=== PATIENT | male | born 1985 | race Caucasian/White ===

== ENCOUNTER 2019-02-09 06:16 | Inpatient (IN) | payer OTHER ==
[~2019-02-09] VITALS: Ht 175.3 cm; Wt 87.5 kg
[2019-02-09 07:01] LABS: HEMATOCRIT 52.4 % (42.0-52.0); HEMOGLOBIN 17.7 g/dl (13.5-17.5); MEAN CORPUSCULAR HEMOGLOBIN 29.9 pg (27.0-33.0); MEAN CORPUSCULAR HGB CONC 33.8 g/dl (32.0-36.5); MEAN CORPUSCULAR VOLUME 88.7 fl (80.0-96.0); PLATELET COUNT, AUTOMATED 290 10^3/uL (150-450); RED BLOOD COUNT 5.91 10^6/uL (4.30-6.10); WHITE BLOOD COUNT 9.7 10^3/uL (4.0-10.0)
[2019-02-09 07:31] LABS: AMPHETAMINES LEVEL URINE NEGATIVE (NEGATIVE); BARBITURATES URINE NEGATIVE (NEGATIVE); BENZODIAZEPINES URINE NEGATIVE (NEGATIVE); CANNABINOIDS URINE NEGATIVE (NEGATIVE); COCAINE METABOLITE URINE NEGATIVE (NEGATIVE); METHADONE URINE NEGATIVE (NEGATIVE); OPIATES URINE POSITIVE (NEGATIVE); PHENCYCLIDINE URINE NEGATIVE (NEGATIVE)
[2019-02-09 07:42] LABS: ALBUMIN 4.8 GM/DL (3.2-5.2); ALT/SGPT 58 U/L (12-78); BILIRUBIN,DIRECT 0.1 MG/DL (0.0-0.2); BILIRUBIN,TOTAL 0.3 MG/DL (0.2-1.0); BLOOD UREA NITROGEN 16 MG/DL (7-18); CALCIUM LEVEL 8.7 MG/DL (8.5-10.1); CARBON DIOXIDE LEVEL 24 MEQ/L (21-32); CHLORIDE LEVEL 107 MEQ/L (98-107); CREATININE FOR GFR 1.38 MG/DL (0.70-1.30); ETHYL ALCOHOL (ETHANOL) 0.176 % (0.000-0.010); GLOMERULAR FILTRATION RATE > 60.0 (>60); GLUCOSE, FASTING 101 MG/DL (70-100); POTASSIUM SERUM 4.9 MEQ/L (3.5-5.1); SALICYLATE LEVEL < 1.7 MG/DL (5.0-30.0); SODIUM LEVEL 140 MEQ/L (136-145); TOTAL PROTEIN 8.1 GM/DL (6.4-8.2)
[2019-02-09 07:43] LABS: ACETAMINOPHEN LEVEL < 2.0 UG/ML (10.0-30.0)
[2019-02-09] MEDS ORDERED: HYDR-3713 PO (08:26)
[2019-02-09] MEDS ORDERED: MAALOX 30 ML SUSP *UDC PO PRN (12:45)
[2019-02-09] MEDS ORDERED: MOM 30ML SUSPENSION UDC PO PRN (12:45)
[2019-02-09] MEDS ORDERED: traZODone 50 MG TAB PO PRN (12:45)
[2019-02-09] MEDS: ACETAMINOPHEN TAB 650MG DOSE (2X325MG) PO PRN (15:14)
[2019-02-09 16:22] VITALS: BP 133/75
[2019-02-09 18:00] VITALS: BP 133/75
[2019-02-10 06:32] VITALS: BP 141/65
[2019-02-10 09:00] VITALS: BP 141/65
[2019-02-10] MEDS: ACETAMINOPHEN TAB 650MG DOSE (2X325MG) PO PRN (09:48)
--- NOTE | 2019-02-10 12:25 | MHHPEPDOC ---
General Date Of Admission: February 09, 2019 Legal Status: 9.39 Chief Complaint "I'm suicidal." History of Present Illness HISTORY OF THE PRESENT ILLNESS: Patient is a 33 -year-old , 14yr AD male, with a history of depression and alcohol use who was brought to ED by MPs after he endorsed SI and wrote a suicide letter to his 5yr old daughter in [place] with her mother after he was arrested for DUI. Pt per ED, guarded and not very forth coming with some information regarding how he's been doing lately. Did endorse loneliness and feeling like the "third wheel often" ( in [place] with his daughter) that causes him to sit and isolate alone at home drinking. Does have a therapist that he mostly will have phone sessions with but pre ED is not very engaged during them, last was in November. He continued to endorse SI in the ED. Psychiatric Review of Systems Depression (2 or more weeks): depressed mood, anhedonia, feelings of worthlesness, difficulty concentrating, suicidal thoughts Amira (4 or more days of): denies Psychosis: denies PTSD: history of trauma, intrusive memories, avoidance of triggers, mood fluctuations Anxiety: situational anxiety, stressor related anxiety Anxiety/ 6 months or more of: restlessness, keyed up, difficulty concentrating, irritability Past Psychiatric History Previous Psychiatric Diagnosis: depression, alcohol use d/o Previous Psychiatric Admissions: 2times as 16 for SI by cutting and then electrocution with 3wk stay for one Suicide Attempts: as above. Psychiatric Follow-up: therapist over phone Psychiatric medications: none Past Medical History Medical Problems denies Head Injury: No Seizures: No Hospitalizations: No Surgeries: No Family Medical/Psychiatric HX Medical Problems noncontributory Psychiatric Disorders: No Addiction: No Suicide Attemps/Completions: No Addiction History alcohol (daily use), other (heavy drugs as a teen, none since) Social History Childhood: [place], parents when he was 4y/o so didn't have much of a relationship with his father. Good childhood. Parents are supportive Abuse/Trauma:3 deployments he refuses to discuss Current Living Situation: apt in [place] Education: high school grad Employment: [employer] 14yrs, 3 deployments (one [place], the worst, 2 [place]), [employer]7 promoting to [employer], Part of [place] Social Support:parents Legal: DUI at 19, DUI night presented ED Marital: , 5y/o living in [place] with her mother, last saw for [place], wishes able to see more often Mental Status Examination General Appearance: well groomed, appears stated age, hospital scubs/clothing Build: average Demeanor: withdrawn Eye Contact: average Activity: anxious Behavior: cooperative, withdrawn Speech: clear, spontaneous, low in volume Mood: depressed, anxious Mood lonely Affect: constricted, flat, congruent, anxious Thought Process: logical/linear, intact Thought Content (Delusions): none reported, denies SI, HI, AVH Thought Content (Other): none reported, appropriate Thought Content (Aggressive): none reported Perception (Hallucinations): none reported Perception (Other): none reported Cognition (Impairment of): none reported Cognition(Intelligence Est.): average Oriented: Awake, Alert, Oriented times three Insight: fair Judgment: Fair Psychosis: Denies Diagnoses Depression unspecified r/o generalized anxiety d/o alcohol use d/o A-FIB/CHADSVASC A-FIB History Current/History of A-Fib/PAF?: No Current Oral Anticoagulant The: No Treatment Treatment ordered: NONE Reason Anticoagulant not given: Not indicated/[id number] Assessment Pt seen and states he was arrested for a DUI Fridiay night and "went off the rails and said I was suicidal and wrote a note to my daughter." Admits he's an "alcoholic" drink 2-4 glasses of whiskey per night. States his marriage isn't a marriage as each see other people, tells people they're and just haven't gone thru the legal process. States he's lonely and just got here in May and hasn't really made any friends and misses his daughter a lot. Drinks b/c he's lonely he states. Admits he has to get rid of all his alcohol at home. States he is motivated to get better. Denies SI/HI, hallucinations, delusions. Denies PTSD symptoms. Feels safe here. Initial Treatment Plan 1. Patient was admitted on a 9.39 status. 2. Complete history was obtained. 3. With patients permission, family will be contacted and database will be expanded. 4. Patients medication regimen will be reviewed and changed accordingly. 5. Patient will be provided with protected environment. 6. Patient will be treated with individual, group, and milieu therapies. 7. Patient will receive supportive psych-education. 8. Discharge planning will commence immediately. 9. Outpatient follow-up treatment will be strongly recommended. 10. The initial treatment plan will focus initially on: * Depression. * Risk for suicide. * Substance abuse. 11. [facility] protocol, zoloft 50mg daily, atarax prn ESTIMATED LENGTH OF STAY: 5-7 DAYS. TIME SPENT COUNSELING AND COORDINATING INITIAL CARE: 30 minutes. Vital Signs Vital Signs Date Time Temp Pulse Resp B/P (MAP) Pulse Ox O2 Delivery O2 Flow Rate FiO2 02/10/19 06:32 98.9 85 14 141/65 (90) 02/09/19 16:22 95 02/09/19 16:13 Room Air Medications Scheduled PRN Hydrocodone/Acetaminophen (Hydrocodone-Acetamin 5-325 mg) 1 Each Tablet, 1 TAB PO Q6H PRN for PAIN, (Reported) Allergies Coded Allergies: azithromycin (Verified Allergy, Intermediate, 02/09/19) JUVE Millan DO February 10, 2019 12:25
[2019-02-10] MEDS ORDERED: SERTRALINE HCL 50 MG TAB PO ONE (12:30)
[2019-02-10] MEDS ORDERED: hydrOXYzine 25 MG TAB PO PRN (12:30)
[2019-02-10] MEDS ORDERED: LORazepam 2 MG TAB PO PRN (13:30)
[2019-02-10] MEDS ORDERED: POLYVINYL ALCOHOL OPHTH SOLN 15 ML(LIQUITEARS) OU PRN (13:30)
[2019-02-10] MEDS: FOLIC ACID 1 MG TAB PO SCH (14:04)
[2019-02-10] MEDS: MULTIVITAMINS/MINERALS THERAP 1 TAB PO SCH (14:04)
[2019-02-10] MEDS: THIAMINE 100 MG TAB PO SCH ×2 (14:04→20:40)
[2019-02-10] MEDS: CHLORHEXIDINE GLUCONATE 0.12 % 15ML UDC (PERIDEX ORAL RINSE) SSP SCH ×2 (15:59→20:40)
[2019-02-10 17:07] VITALS: BP 154/78
[2019-02-10 17:30] VITALS: BP 154/78
[2019-02-11 06:20] VITALS: BP 129/58
[2019-02-11] MEDS: THIAMINE 100 MG TAB PO SCH ×2 (09:24→20:53)
[2019-02-11] MEDS: MULTIVITAMINS/MINERALS THERAP 1 TAB PO SCH (09:24)
[2019-02-11] MEDS: FOLIC ACID 1 MG TAB PO SCH (09:24)
[2019-02-11] MEDS: SERTRALINE HCL 50 MG TAB PO SCH (09:24)
[2019-02-11] MEDS: CHLORHEXIDINE GLUCONATE 0.12 % 15ML UDC (PERIDEX ORAL RINSE) SSP SCH ×3 (09:24→20:53)
--- NOTE | 2019-02-11 12:04 | MHIPNPDOC ---
[facility] Progress Note Progress Note DATE OF SERVICE: 02/11/19 HISTORY: Patient is a 33 -year-old , 14yr AD male, with a history of depression and alcohol use who was brought to ED by MPs after he endorsed SI and wrote a suicide letter to his 5yr old daughter in [place] with her mother after he was arrested for DUI. Pt per ED, guarded and not very forth coming with some information regarding how he's been doing lately. Did endorse loneliness and feeling like the "third wheel often" ( in [place] with his daughter) that causes him to sit and isolate alone at home drinking. Does have a therapist that he mostly will have phone sessions with but pre ED is not very engaged during them, last was in November. He continued to endorse SI in the ED. VITAL SIGNS: See below. NEW TEST RESULTS:See below. CURRENT MEDICATIONS: See below. MENTAL STATUS EXAMINATION: General Appearance: well groomed, appears stated age, hospital scubs/clothing Build: average Demeanor: less withdrawn Eye Contact: average Activity: less anxious Behavior: cooperative, less withdrawn Speech: clear, spontaneous, reg in volume Mood: depressed, less anxious Mood a bit better Affect: less constricted, flat, congruent, less anxious Thought Process: logical/linear, intact Thought Content (Delusions): none reported, denies SI, HI, AVH Thought Content (Other): none reported, appropriate Thought Content (Aggressive): none reported Perception (Hallucinations): none reported Perception (Other): none reported Cognition (Impairment of): none reported Cognition(Intelligence Est.): average Oriented: Awake, Alert, Oriented times three Insight: fair Judgment: Fair Psychosis: Denies DIAGNOSES: Depression unspecified R/O Major depression vs. substance induced depression secondary alcohol r/o generalized anxiety d/o alcohol use d/o ASSESSMENT:Pt seen and states he's feeling a little better. Endorses difficulty maintaining sleep at night and always waking up around 2:30-3am in a startled not knowing why. Discussed starting prazosin at night for startle response as maybe secondary to a dream he has no memory of and increasing trazodone. He is agreeable, risks/benefits discussed. Feels he is tolerating his medications and they're beneficial. Alcohol withdrawal is improving and has not required ativan since admission. This is causing his anxiety to improve. States atarax is beneficial for anxiety during the day. He is attending groups and finding them helpful. Admits he's finding it hard to talk to his peers on the units as he has difficultly relating to him. Recommended to continue to try to. States his father is coming up tomorrow to aid him with disposing of all the alcohol in his home and to support him while he's here and after d/c. He denies SI/HI, hallucinations, delusions. Pt feels safe here. MANAGEMENT PLAN: continue plan. start prazosin 1mg qhs for startle during night, increase trazodone for sleep Medications: ciwa protocol zoloft 50mg daily atarax 50mg q6hr prn anxiety trazodone 100mg qhs prn insomnia prazosin 1mg qhs TIME SPENT: 30 minutes. Vital Signs Vital Signs Date Time Temp Pulse Resp B/P (MAP) Pulse Ox O2 Delivery O2 Flow Rate FiO2 02/11/19 06:20 98.9 78 16 129/58 (81) 02/09/19 16:22 95 02/09/19 16:13 Room Air Current Medications Current Medications Acetaminophen (Tylenol Tab) 650 mg Q6HP PRN PO HEADACHE or DISCOMFORT Last administered on 02/10/19at 09:48; Start 02/09/19 at 12:45 Al Hydrox/Mg Hydrox/Simethicone (Mylanta) 30 ml Q4HP PRN PO HEARTBURN/INDIGESTION; Start 02/09/19 at 12:45 Artificial Tears (Akwa Tears) 2 drop TIDP PRN OU DRY EYES; Start 02/10/19 at 13 :30 Chlorhexidine Gluconate (Peridex Oral Rinse) 15 ml TID SSP Last administered on 02/11/19at 09:24; Start 02/10/19 at 16:00 Folic Acid (Folic Acid) 1 mg DAILY PO Last administered on 02/11/19at 09:24; Start 02/10/19 at 09:00 Home Med (Med Rec Complete!) ASDIRECTED XX ; Start 02/09/19 at 11:30; Stop 02/09/19 at 11:41; Status DC Hydroxyzine HCl (Atarax) 25 mg Q6HP PRN PO ANXIETY; Start 02/10/19 at 12:30 Lorazepam (Ativan) 2 mg ASDIRECTED PRN PO SEE PROTOCOL; Start 02/10/19 at 13:30 Magnesium Hydroxide (Milk Of Magnesia) 30 ml DAILYPRN PRN PO CONSTIPATION; Start 02/09/19 at 12:45 Multivitamins (Theragram-M) 1 tab DAILY PO Last administered on 02/11/19at 09:24; Start 02/10/19 at 09:00 Sertraline HCl (Zoloft) 50 mg DAILY PO Last administered on 02/11/19at 09:24; Start 02/11/19 at 09:00 Thiamine HCl (Thiamine HCl) 100 mg BID PO Last administered on 02/11/19at 09:24; Start 02/10/19 at 09:00; Stop 02/12/19 at 21:01 Trazodone HCl (Desyrel) 50 mg QHSP PRN PO INSOMNIA Last administered on 02/10/19at 20:40; Start 02/09/19 at 12:45 Allergies Coded Allergies: azithromycin (Verified Allergy, Intermediate, 02/09/19) Hives A-FIB/CHADSVASC A-FIB History Current/History of A-Fib/PAF?: No Current Oral Anticoagulant The: No Treatment Treatment ordered: NONE Reason Anticoagulant not given: Not indicated/[id number] JUVE GARRIDO DO February 11, 2019 12:04 pm
[2019-02-11] MEDS ORDERED: traZODone 100 MG TAB PO PRN (12:15)
[2019-02-11 13:19] VITALS: BP 140/81
[2019-02-11 18:00] VITALS: BP 132/80
[2019-02-11] MEDS ORDERED: PRAZOSIN 1 MG CAP PO SCH (21:00)
[2019-02-12 06:38] VITALS: BP 128/78
[2019-02-12 06:45] VITALS: BP 128/78
[2019-02-12] MEDS: MULTIVITAMINS/MINERALS THERAP 1 TAB PO SCH (08:41)
[2019-02-12] MEDS: FOLIC ACID 1 MG TAB PO SCH (08:41)
[2019-02-12] MEDS: THIAMINE 100 MG TAB PO SCH ×2 (08:42→21:19)
[2019-02-12] MEDS: CHLORHEXIDINE GLUCONATE 0.12 % 15ML UDC (PERIDEX ORAL RINSE) SSP SCH ×3 (08:42→21:19)
[2019-02-12] MEDS: SERTRALINE HCL 50 MG TAB PO SCH (08:42)
--- NOTE | 2019-02-12 09:33 | MHIPNPDOC ---
[facility] Progress Note Progress Note DATE OF SERVICE: 02/12/19 HISTORY: Patient is a 33 -year-old , 14yr AD male, with a history of depression and alcohol use who was brought to ED by MPs after he endorsed SI and wrote a suicide letter to his 5yr old daughter in [place] with her mother after he was arrested for DUI. Pt per ED, guarded and not very forth coming with some information regarding how he's been doing lately. Did endorse loneliness and feeling like the "third wheel often" ( in [place] with his daughter) that causes him to sit and isolate alone at home drinking. Does have a therapist that he mostly will have phone sessions with but pre ED is not very engaged during them, last was in November. He continued to endorse SI in the ED. VITAL SIGNS: See below. NEW TEST RESULTS:See below. CURRENT MEDICATIONS: See below. MENTAL STATUS EXAMINATION: General Appearance: well groomed, appears stated age, hospital scrubs/clothing Build: average Demeanor: less withdrawn, cooperative Eye Contact: average Activity: less anxious Behavior: cooperative, less withdrawn Speech: clear, spontaneous, reg in volume Mood: depressed, less anxious Mood "alright" Affect: less constricted, flat, congruent, less anxious Thought Process: logical/linear, intact Thought Content (Delusions): none reported, denies SI, HI, AVH Thought Content (Other): none reported, appropriate Thought Content (Aggressive): none reported Perception (Hallucinations): none reported Perception (Other): none reported Cognition (Impairment of): none reported Cognition(Intelligence Est.): average Oriented: Awake, Alert, Oriented times three Insight: fair Judgment: Fair Psychosis: Denies DIAGNOSES: Depression unspecified R/O Major depression vs. substance induced depression secondary alcohol r/o generalized anxiety d/o alcohol use d/o ASSESSMENT:Pt seen and states he's feeling "alright." Endorses difficulty falling sleep last night due to worrisome thoughts and agitated pt on unit. Did wake up in middle of night again despite start of prazosin and increase in trazodone. Will increase prazosin for sleep maintenance, pt agreeable. States his father is coming today to remove all the alcohol from his home, visit him on the unit today, and stay with him awhile s/p discharge. Feels he is tolerating his medications and they're beneficial. Alcohol withdrawal is improving and has not required ativan since admission. This is causing his anxiety to improve. States atarax is beneficial for anxiety during the day. He is attending groups and finding them helpful. He denies SI/HI, hallucinations, delusions. Pt feels safe here. MANAGEMENT PLAN: continue plan. increase prazosin for sleep Medications: wa protocol zoloft 50mg daily atarax 50mg q6hr prn anxiety trazodone 100mg qhs prn insomnia prazosin 2mg qhs TIME SPENT: 30 minutes. Vital Signs Vital Signs Date Time Temp Pulse Resp B/P (MAP) Pulse Ox O2 Delivery O2 Flow Rate FiO2 02/12/19 06:45 80 128/78 02/12/19 06:38 97.9 14 02/09/19 16:22 95 02/09/19 16:13 Room Air Current Medications Current Medications Acetaminophen (Tylenol Tab) 650 mg Q6HP PRN PO HEADACHE or DISCOMFORT Last administered on 02/10/19at 09:48; Start 02/09/19 at 12:45 Al Hydrox/Mg Hydrox/Simethicone (Mylanta) 30 ml Q4HP PRN PO HEARTBURN/INDIGESTION; Start 02/09/19 at 12:45 Artificial Tears (Akwa Tears) 2 drop TIDP PRN OU DRY EYES; Start 02/10/19 at 13:30 Chlorhexidine Gluconate (Peridex Oral Rinse) 15 ml TID SSP Last administered on 02/12/19at 08:42; Start 02/10/19 at 16:00 Folic Acid (Folic Acid) 1 mg DAILY PO Last administered on 02/12/19at 08:41; Start 02/10/19 at 09:00 Home Med (Med Rec Complete!) ASDIRECTED XX ; Start 02/09/19 at 11:30; Stop 02/09/19 at 11:41; Status DC Hydroxyzine HCl (Atarax) 25 mg Q6HP PRN PO ANXIETY; Start 02/10/19 at 12:30 Lorazepam (Ativan) 2 mg ASDIRECTED PRN PO SEE PROTOCOL; Start 02/10/19 at 13:30 Magnesium Hydroxide (Milk Of Magnesia) 30 ml DAILYPRN PRN PO CONSTIPATION; Start 02/09/19 at 12:45 Multivitamins (Theragram-M) 1 tab DAILY PO Last administered on 02/12/19 08:41; Start 02/10/19 at 09:00 Prazosin HCl (Minipress) 1 mg QHS PO Last administered on 02/11/19at 20:53; Start 02/11/19 at 21:00 Sertraline HCl (Zoloft) 50 mg DAILY PO Last administered on 02/12/19 08:42; Start 02/11/19 at 09:00 Thiamine HCl (Thiamine HCl) 100 mg BID PO Last administered on 02/12/19 08:42; Start 02/10/19 at 09:00; Stop 02/12/19 at 21:01 Trazodone HCl (Desyrel) 50 mg QHSP PRN PO INSOMNIA Last administered on 02/10/19at 20:40; Start 02/09/19 at 12:45; Stop 02/11/19 at 12:06; Status DC Trazodone HCl (Desyrel) 100 mg QHSP PRN PO INSOMNIA; Start 02/11/19 at 12:15 Allergies Coded Allergies: azithromycin (Verified Allergy, Intermediate, 02/09/19) Hives A-FIB/CHADSVASC A-FIB History Current/History of A-Fib/PAF?: No Current Oral Anticoagulant The: No Treatment Treatment ordered: NONE Reason Anticoagulant not given: Not indicated/[id number] JUVE GARRIDO DO February 12, 2019 9:33 am
--- NOTE | 2019-02-12 15:27 | HPEPDOC ---
General Date of Admission February 09, 2019 at 12:32 Attending Physician: NOLA MCCORD MD Chief Complaint The patient is a 33-year-old male admitted with a reason for visit of Unsp ecified Depression. History of Present Illness Patient is a 32-year-old male, past medical history significant for depression, alcohol abuse. He was brought to the emergency room on account of suicidal ideation after arriving a letter to his 5 year old daughter stating his intent. Patient endorsed loneliness and suicide ideation. On admit he was admitted to the inpatient psychiatric unit for further evaluation and management. On assessment today he denies any chest pain, shortness of breath, malaise. Patient states he "had a DUI Monday morning and went off a little bit" with suicide ideation and that is all he can remember. Presenting blood alcohol level was 0.176. Creatinine was 1.38. Hemoglobin was 17.7 Home Medications Scheduled PRN Hydrocodone/Acetaminophen (Hydrocodone-Acetamin 5-325 mg) 1 Each Tablet, 1 TAB PO Q6H PRN for PAIN, (Reported) Allergies Coded Allergies: azithromycin (Verified Allergy, Intermediate, 02/09/19) Hives Past Medical History Medical History Insomnia Depression and anxiety Alcohol abuse Surgical History Left finger amputation, hernia repair, 2017 Family History Denies any medical, family history Social History Denies tobacco, drinks 3-4 glasses of whiskey a day, denies polysubstance abuse A-FIB/CHADSVASC A-FIB History Current/History of A-Fib/PAF?: No Current Oral Anticoagulant The: No Review of Systems Other systems A 10 point pertinent review of systems is completed, negative except as stated in the history of present illness Physical Examination Other physical findings GENERAL: NAD SKIN : Warm, dry intact HEENT: Atraumatic, normocephalic, PERRL, moist mucous membrane CV: Regular rate and rhythm, S1S2, no JVD, no edema, distal pulses + and palpable RESP: CTAB, no accessory muscle use noted ABDOMEN: BS+ non distended non tender MS: no joint deformities NEURO: Alert and oriented x 3, CN2-12 grossly intact PSYCH: no anxiety or agitation, appropriate mood and affect. Vital Signs Vital Signs Date Time Temp Pulse Resp B/P (MAP) Pulse Ox O2 Delivery O2 Flow Rate FiO2 02/12/19 06:45 80 128/78 02/12/19 06:38 97.9 14 02/09/19 16:22 95 02/09/19 16:13 Room Air Assessment/Plan Polycythemia Alcohol abuse Renal insufficiency PLAN Repeat CBC has hemoglobin and hematocrit may have been artificially elevated with dehydration from alcohol use If repeat levels within normal limits then. Patient will not need further follow-up by medical team Other acute Mental health issues, currently managed by primary team Plan / VTE VTE Prophylaxis Ordered?: No VTE Exclusion Mechanical Proph: Low Risk for VTE WENDY CURIELP February 12, 2019 15:27
[2019-02-12 15:38] VITALS: BP 134/86
[2019-02-12 18:00] VITALS: BP 132/86
[2019-02-12] MEDS ORDERED: PRAZOSIN 1 MG CAP PO SCH (21:00)
[2019-02-12 21:03] VITALS: BP 132/86
[2019-02-12 21:19] VITALS: BP 149/79
[2019-02-13 06:56] LABS: HEMATOCRIT 49.3 % (42.0-52.0); HEMOGLOBIN 16.7 g/dl (13.5-17.5); MEAN CORPUSCULAR HGB CONC 33.9 g/dl (32.0-36.5); MEAN CORPUSCULAR VOLUME 88.5 fl (80.0-96.0); PLATELET COUNT, AUTOMATED 240 10^3/uL (150-450); RED BLOOD COUNT 5.57 10^6/uL (4.30-6.10); WHITE BLOOD COUNT 6.2 10^3/uL (4.0-10.0)
[2019-02-13 06:58] VITALS: BP 121/57
[2019-02-13 07:27] LABS: ALBUMIN 3.8 GM/DL (3.2-5.2); ALT/SGPT 37 U/L (12-78); BILIRUBIN,TOTAL 0.8 MG/DL (0.2-1.0); BLOOD UREA NITROGEN 16 MG/DL (7-18); CARBON DIOXIDE LEVEL 34 MEQ/L (21-32); CHLORIDE LEVEL 102 MEQ/L (98-107); CREATININE FOR GFR 1.39 MG/DL (0.70-1.30); GLOMERULAR FILTRATION RATE > 60.0 (>60); GLUCOSE, FASTING 101 MG/DL (70-100); MAGNESIUM LEVEL 2.2 MG/DL (1.8-2.4); POTASSIUM SERUM 4.7 MEQ/L (3.5-5.1); SODIUM LEVEL 139 MEQ/L (136-145); TOTAL PROTEIN 7.2 GM/DL (6.4-8.2)
[2019-02-13] MEDS: SERTRALINE HCL 50 MG TAB PO SCH (08:15)
[2019-02-13] MEDS: FOLIC ACID 1 MG TAB PO SCH (08:15)
[2019-02-13] MEDS: MULTIVITAMINS/MINERALS THERAP 1 TAB PO SCH (08:15)
[2019-02-13] MEDS: CHLORHEXIDINE GLUCONATE 0.12 % 15ML UDC (PERIDEX ORAL RINSE) SSP SCH (08:15)
[2019-02-13] MEDS ORDERED: MINI1CAP PO (08:44)
[2019-02-13] MEDS ORDERED: TRAZ10TA PO (08:44)
[2019-02-13] MEDS ORDERED: SERT-155 PO (08:44)
[2019-02-13] MEDS ORDERED: HYDR-3363 PO (08:44)
--- NOTE | 2019-02-13 08:45 | MHDSPDOC ---
[facility] Discharge Summary Discharge Summary DATE OF ADMISSION: February 09, 2019 at 12:32 pm DATE OF DISCHARGE: February 13, 2019 DISCHARGE DIAGNOSES: Depression unspecified R/O Major depression vs. substance induced depression secondary alcohol r/o generalized anxiety d/o alcohol use d/o REASON FOR ADMISSION: Patient is a 33 -year-old , 14yr AD male, with a history of depression and alcohol use who was brought to ED by MPs after he endorsed SI and wrote a suicide letter to his 5yr old daughter in [place] with her mother after he was arrested for DUI. Pt per ED, guarded and not very forth coming with some information regarding how he's been doing lately. Did endorse loneliness and feeling like the "third wheel often" ( in [place] with his daughter) that causes him to sit and isolate alone at home drinking. Does have a therapist that he mostly will have phone sessions with but pre ED is not very engaged during them, last was in November. He continued to endorse SI in the ED. CONSULTANTS INVOLVED: none TREATMENT AND PROGRESS ON THE UNIT : Pt was admitted to [facility], seen for psychiatric assessment and started on zoloft 50mg daily for mood and prazosin 2mg qhs for nightmares. He was provided vistaril 25mg q6hr prn anxiety and trazodone 100mg qhs prn insomnia. He was placed on a ciwa protocol for alcohol withdrawal but did not require any ativan for withdrawal b/c he experienced none. Pt found his medications beneficial and tolerated them well. He attended groups daily during his stay. His symptoms improved with treatment. On day of discharge he denied depression, anxiety, insomnia, SI/HI, hallucinations, delusions. He was discharged home after Mark meeting with follow-up at [facility]. He felt safe for discharge. DISCHARGE ASSESSMENT: Pt seen and states he's feels "good" and is looking forward to being discharged home with his Mark. Is sleeping better at night with trazodone and prazosin. Denies alcohol withdrawal. Feels he is tolerating his medications and they're beneficial. This is causing his anxiety to improve. States atarax is beneficial for anxiety during the day. He is attending groups and finding them helpful. States his father is in town as removed all the alcohol from his home and will be staying with him for a while after d/c. He denies depression, anxiety, insomnia, SI/HI, hallucinations, delusions. Pt feels safe to be discharged home with his Mark. MENTAL STATUS EXAMINATION ON DISCHARGE: General Appearance: well groomed, appears stated age, own clothing Build: average Demeanor: cooperative Eye Contact: average Activity: average Behavior: cooperative Speech: clear, spontaneous, reg in volume Mood: euthymic, full Mood "good" Affect: euthymic, full, congruent, Thought Content (Delusions): none reported, denies SI, HI, AVH Thought Content (Other): none reported, appropriate Thought Content (Aggressive): none reported Perception (Hallucinations): none reported Perception (Other): none reported Cognition (Impairment of): none reported Cognition(Intelligence Est.): average Oriented: Awake, Alert, Oriented times three Insight: good Judgment: good Psychosis: Denies MEDICATIONS ON DISCHARGE: zoloft 50mg daily atarax 25mg q6hr prn anxiety trazodone 100mg qhs prn insomnia prazosin 2mg qhs PLAN/FOLLOWUP ARRANGEMENTS: d/c home with Mark with follow-up at [facility]. The amount of time spent in the coordination of care for this patient was approximately 30 minutes. Vital Signs/I&Os Vital Signs Date Time Temp Pulse Resp B/P (MAP) Pulse Ox O2 Delivery O2 Flow Rate FiO2 02/13/19 06:58 97.7 71 18 121/57 (78) 02/09/19 16:22 95 02/09/19 16:13 Room Air Laboratory Data Labs 24H Laboratory Tests 2 02/13/19 06:35: Nucleated Red Blood Cells % (auto) 0.0, Anion Gap 3L, Glomerular Filtration Rate > 60.0, Blood Urea Nitrogen 16, Creatinine 1.39H, Sodium Level 139, Potassium Level 4.7, Chloride Level 102, Carbon Dioxide Level 34H, Calcium Level 9.0, Aspartate Amino Transf (AST/SGOT) 25, Alanine Aminotransferase (ALT/SGPT) 37, Alkaline Phosphatase 73, Total Bilirubin 0.8, Total Protein 7.2, Albumin 3.8, Magnesium Level 2.2, Albumin/Globulin Ratio 1.12 CBC/BMP Laboratory Tests 02/13/19 06:35 Red Blood Count 5.57, Mean Corpuscular Volume 88.5, Mean Corpuscular Hemoglobin 30.0, Mean Corpuscular Hemoglobin Concent 33.9, Red Cell Distribution Width 13.2, Calcium Level 9.0, Aspartate Amino Transf (AST/SGOT) 25, Alanine Aminotransferase (ALT/SGPT) 37, Alkaline Phosphatase 73, Total Bilirubin 0.8, Total Protein 7.2, Albumin 3.8 Medications Scheduled PRN Hydrocodone/Acetaminophen (Hydrocodone-Acetamin 5-325 mg) 1 Each Tablet, 1 TAB PO Q6H PRN for PAIN, (Reported) Allergies Coded Allergies: azithromycin (Verified Allergy, Intermediate, 02/09/19) JUVE Millan DO February 13, 2019 8:45 am
[2019-02-13 10:54] LABS: CPK CREATINE PHOSPHOKINASE 689 U/L (39-308)
--- NOTE | 2019-02-13 14:21 | IPNPDOC ---
Subjective Date Seen The patient was seen on 02/13/19. Subjective Chief Complaint/HPI Patient has no acute complaints today. He has been discharged Events since last encounter Normalized lab values. Discussed with him. Elevated CK values. Discussed with him. Patient reports he is very active and runs and lifts weights frequently. We have discussed he should follow up renal function and stay hydrated Objective Physical Examination Other physical findings GENERAL: NAD SKIN : Warm, dry intact HEENT: Atraumatic, normocephalic, PERRL, moist mucous membrane CV: Regular rate and rhythm, S1S2, no JVD, no edema, distal pulses + and palpable RESP: CTAB, no accessory muscle use noted ABDOMEN: BS+ non distended non tender MS: no joint deformities NEURO: Alert and oriented x 3, CN2-12 grossly intact PSYCH: no anxiety or agitation, appropriate mood and affect. A-FIB/CHADSVASC A-FIB History Current/History of A-Fib/PAF?: No Current Oral Anticoagulant The: No Assessment /Plan Assessment Polycythemia Alcohol abuse Elevated, creatinine Elevated CPK PLAN Repeat CBC shows hemoglobin and HCT normalized, this was discussed with him Elevated CPK levels discussed . He is instructed to stay hydrated given his very physical lifestyle Also follow up periodically with renal function He verbalized understanding Plan/VTE VTE Prophylaxis Ordered?: No VTE Exclusion Mechanical Proph: Low Risk for VTE VS, I&O, 24H, Fishbone Vital Signs/I&O Vital Signs Date Time Temp Pulse Resp B/P (MAP) Pulse Ox O2 Delivery O2 Flow Rate FiO2 02/13/19 06:58 97.7 71 18 121/57 (78) 02/09/19 16:22 95 02/09/19 16:13 Room Air Laboratory Data 24H LABS Laboratory Tests 2 02/13/19 06:35: Nucleated Red Blood Cells % (auto) 0.0, Anion Gap 3L, Glomerular Filtration Rate > 60.0, Blood Urea Nitrogen 16, Creatinine 1.39H, Sodium Level 139, Potassium Level 4.7, Chloride Level 102, Carbon Dioxide Level 34H, Calcium Level 9.0, Aspartate Amino Transf (AST/SGOT) 25, Alanine Aminotransferase (ALT/SGPT) 37, Total Creatine Kinase 689H, Alkaline Phosphatase 73, Total Bilirubin 0.8, Total Protein 7.2, Albumin 3.8, Magnesium Level 2.2, Albumin/Globulin Ratio 1.12 CBC/BMP Laboratory Tests 02/13/19 06:35 Red Blood Count 5.57, Mean Corpuscular Volume 88.5, Mean Corpuscular Hemoglobin 30.0, Mean Corpuscular Hemoglobin Concent 33.9, Red Cell Distribution Width 13.2, Calcium Level 9.0, Aspartate Amino Transf (AST/SGOT) 25, Alanine Aminotransferase (ALT/SGPT) 37, Total Creatine Kinase 689 H, Alkaline Phosphatase 73, Total Bilirubin 0.8, Total Protein 7.2, Albumin 3.8 WENDY CURIELP February 13, 2019 14:21
== END 2019-02-13 11:40 | disposition home or self-care (01) | DRG 881 ==
LOC: M ED 06:16 → M ED INP 12:32 → M PSY 16:15
PROVIDERS: ADMIT Psychiatry & Neurology Psychiatry; ATTEND Psychiatry & Neurology Psychiatry
DX: F32.9 Major depressive disorder, single episode, unspecified (principal); R45.851 Suicidal ideations; F41.1 Generalized anxiety disorder; F10.10 Alcohol abuse, uncomplicated; F19.94 Other psychoactive substance use, unspecified with psychoactive substance-induced mood disorder; Z88.8 Allergy status to other drugs, medicaments and biological substances; D75.1 Secondary polycythemia

== ENCOUNTER 2021-07-17 11:26 | Emergency (ER) | payer OTHER ==
[~2021-07-17] VITALS: Ht 175.3 cm; Wt 87.7 kg
[~2021-07-17 11:26] MED LIST: HYDR-3363 PO; HYDR-3713 PO; MINI1CAP PO; SERT50TA29 PO; TRAZ1TAB12 PO
[2021-07-17] MEDS ORDERED: VALA500T5 PO (11:32)
--- OUTSIDE RECORDS SUMMARY | 2021-07-17 11:33 | CCD ---
Author Author [facility] Organization [facility] Address Unknown Phone Unavailable Care Team Providers Care Registered Physical Therapist Name Role Phone Adrian Marquis MD Unavailable Unavailable Adrian Marquis MD Unavailable Unavailable Adrian Marquis MD Unavailable Unavailable Adrian Maqruis MD Unavailable Unavailable Adrian Marquis MD Unavailable Unavailable Adrian Marquis MD Unavailable Unavailable Adrian Marquis MD Unavailable Unavailable Adrian Marquis MD Unavailable Unavailable Adrian Marquis MD Unavailable Unavailable Adrian Marquis MD Unavailable Unavailable Adrian Marquis MD Unavailable Unavailable Adrian Marquis MD Unavailable Unavailable Adrian Marquis MD Unavailable Unavailable Adrian Marquis MD Unavailable Unavailable Adrian Marquis MD Unavailable Unavailable Adrian Marquis MD Unavailable Unavailable Adrian Marquis MD Unavailable Unavailable Adrian Marquis MD Unavailable Unavailable Adrian Marquis MD Unavailable Unavailable Adrian Marquis MD Unavailable Unavailable Adrian Marquis MD Unavailable Unavailable Adrian Marquis MD Unavailable Unavailable Adrian Marquis MD Unavailable Unavailable Adrian Marquis MD Unavailable Unavailable Adrian Marquis MD Unavailable Unavailable Adrian Marquis MD Unavailable Unavailable Adrian Marquis MD Unavailable Unavailable Adrian Marquis MD Unavailable Unavailable Adrian Marquis MD Unavailable Unavailable Adrian Marquis MD Unavailable Unavailable Adrian Marquis MD Unavailable Unavailable Adrian Marquis MD Unavailable Unavailable Adrian Marquis MD Unavailable Unavailable Adrian Marquis MD Unavailable Unavailable Adrian Marquis MD Unavailable Unavailable Adrian Marquis MD Unavailable Unavailable Adrian Marquis MD Unavailable Unavailable BolAdrian montano MD Unavailable Unavailable Adrian Marquis MD Unavailable Unavailable BolAdrian montano MD Unavailable Unavailable Adrian Marquis MD Unavailable Unavailable Adrian Marquis MD Unavailable Unavailable Adrian Marquis MD Unavailable Unavailable Adrian Marquis MD Unavailable Unavailable Adrian Marquis MD Unavailable Unavailable BolAdrian montano MD Unavailable Unavailable BolAdrian montano MD Unavailable Unavailable BolAdrian montano MD Unavailable Unavailable BolAdrian montano MD Unavailable Unavailable Jumalon, M Kelli HVAC ENGINEER Unavailable Unavailable Jumalon, M Kelli HVAC ENGINEER Unavailable Unavailable Jumalon, M Kelli HVAC ENGINEER Unavailable Unavailable Jumalon, M Kelli HVAC ENGINEER Unavailable Unavailable Jumalon, M Kelli HVAC ENGINEER Unavailable Unavailable Jumalon, M Kelli HVAC ENGINEER Unavailable Unavailable Jumalon, M Kelli HVAC ENGINEER Unavailable Unavailable Jumalon, M Kelli HVAC ENGINEER Unavailable Unavailable Jumalon, M Kelli HVAC ENGINEER Unavailable Unavailable Jumalon, M Kelli HVAC ENGINEER Unavailable Unavailable Jumalon, M Kelli HVAC ENGINEER Unavailable Unavailable Jumalon, M Kelli HVAC ENGINEER Unavailable Unavailable Jumalon, M Kelli HVAC ENGINEER Unavailable Unavailable Jumalon, M Kelli HVAC ENGINEER Unavailable Unavailable Jumalon, M Kelli HVAC ENGINEER Unavailable Unavailable Jumalon, M Kelli HVAC ENGINEER Unavailable Unavailable Jumalon, M Kelli HVAC ENGINEER Unavailable Unavailable Jumalon, M Kelli HVAC ENGINEER Unavailable Unavailable Jumalon, M Kelli HVAC ENGINEER Unavailable Unavailable Jumalon, M Kelli HVAC ENGINEER Unavailable Unavailable Jumalon, M Kelli HVAC ENGINEER Unavailable Unavailable Jumalon, M Kelli HVAC ENGINEER Unavailable Unavailable Jumalon, M Kelli HVAC ENGINEER Unavailable Unavailable Jumalon, M Kelli HVAC ENGINEER Unavailable Unavailable Jumalon, M Kelli HVAC ENGINEER Unavailable Unavailable Jumalon, M Kelli HVAC ENGINEER Unavailable Unavailable Jumalon, M Kelli HVAC ENGINEER Unavailable Unavailable Jumalon, M Kelli HVAC ENGINEER Unavailable Unavailable Jumalon, M Kelli HVAC ENGINEER Unavailable Unavailable Jumalon, M Kelli HVAC ENGINEER Unavailable Unavailable Re-disclosure Warning The records that you are about to access may contain information from federally-assisted alcohol or drug abuse programs. If such information is present, then the following federally mandated warning applies: This information has been disclosed to you from records protected by federal confidentiality rules (42 CFR part 2). The federal rules prohibit you from making any further disclosure of this information unless further disclosure is expressly permitted by the written consent of the person to whom it pertains or as otherwise permitted by 42 CFR part 2. A general authorization for the release of medical or other information is NOT sufficient for this purpose. The Federal rules restrict any use of the information to criminally investigate or prosecute any alcohol or drug abuse patient.The records that you are about to access may contain highly sensitive health information, the redisclosure of which is protected by Article 27-F of the [facility] Public Health law. If you continue you may have access to information: Regarding HIV / AIDS; Provided by facilities licensed or operated by the [facility] Office of Mental Health; or Provided by the [facility] Office for People With Developmental Disabilities. If such information is present, then the following [facility] mandated warning applies: This information has been disclosed to you from confidential records which are protected by state law. State law prohibits you from making any further disclosure of this information without the specific written consent of the person to whom it pertains, or as otherwise permitted by law. Any unauthorized further disclosure in violation of state law may result in a fine or care home sentence or both. A general authorization for the release of medical or other information is NOT sufficient authorization for further disc losure. Allergies and Adverse Reactions Type Description Substance Reaction Status Data Source(s ) Allergy to substance Mild to Moderate valacyclovir Rash [facility] ([facility]) Allergy to substance Mild to Moderate valacyclovir Rash SKINNY ([facility]) Allergy to substance Mild to Moderate valacyclovir Rash SKINNY ([facility]) Allergy to substance Mild to Moderate valacyclovir Rash SKINNY ([facility]) Allergy to substance Mild to Moderate valacyclovir Rash SKINNY ([facility]) Allergy to substance Mild to Moderate valacyclovir Rash SKINNY ([facility]) Allergy to substance Mild to Moderate valacyclovir Rash SKINNY ([facility]) Encounters Encounter Providers Location Date Indications Data Source(s ) Kelli Murray, CERTIFIED COURT/MEDICAL INTERPRETER: [id number], [place] [address], Ph. Attender: Kelli Murray [facility] 01/04/2021 12:00:00 AM EDT ATHE NA ([facility]) Kelli Murray, CERTIFIED COURT/MEDICAL INTERPRETER: [address], [place] [address], Ph. Attender: Kelli Murray [facility] 12/01/2020 12:00:00 AM EST ATHE NA ([facility]) Kelli Murray, CERTIFIED COURT/MEDICAL INTERPRETER: [address], [facility] [place] [address], Ph. Attender: Kelli Murray [facility] 12/01/2020 12:00:00 AM EST ATHE NA ([facility]) Kelli Murray, CERTIFIED COURT/MEDICAL INTERPRETER: [address], [place] [address], Ph. Attender: Kelli Murray [facility] 10/20/2020 12:00:00 AM EST ATHE NA ([facility]) Kelli Murray, CERTIFIED COURT/MEDICAL INTERPRETER: [address], [place] [address], Ph. Attender: Kelli Murray [facility] 10/20/2020 12:00:00 AM EST ATHE NA ([facility]) Kelli Murray, CERTIFIED COURT/MEDICAL INTERPRETER: [address], [place] [address], Ph. Attender: Kelli Murray [facility] - [facility] 10/20/2020 12:00:00 AM EST ATHE NA ([facility]) Zachary Marquis MD: [id number], [address], [place] [address], Ph. Attender: Zachary Marquis MD [place] - [facility] 08/24/2020 12:00:00 AM EST SKINNY ([facility]) Zachary Marquis MD: [id number], [address], [place] [address], Ph. Attender: Zachary Marquis MD [place] - [facility] 08/24/2020 12:00:00 AM EST SKINNY ([facility]) Zachary Marquis MD: [address], [place] [address], Ph. Attender: Zachary Marquis MD [place] - [facility] 08/24/2020 12:00:00 AM EST SKINNY ([facility]) Zachary Marquis MD: [address], [address], [place] [address], Ph. Attender: Zachary MARTÍNEZ - [facility] 08/24/2020 12:00:00 AM EST SKINNY ([facility]) Zachary Marquis MD: [address], [address], [place] [address], Ph. Attender: Zachary Marquis MD [place] - [facility] 08/10/2020 12:00:00 AM EST SKINNY ([facility]) Zachary Marquis MD: [id number], [address], [place] [address], Ph. Attender: Zachary Marquis MD [place] - [facility] 08/10/2020 12:00:00 AM EST SKINNY ([facility]) Zachary Marquis MD: [id number], [place] [address], Ph. Attender: Zachary MARTÍNEZ - [facility] 08/10/2020 12:00:00 AM EST SKINNY ([facility]) Zachary Marquis MD: [id number], [address], [place] [address], Ph. Attender: Zachary MARTÍNEZ - [facility] 08/10/2020 12:00:00 AM EST SKINNY ([facility]) Zachary Marquis MD: [id number], [place] [address], Ph. Attender: Zachary MARTÍNEZ - [facility] 08/10/2020 12:00:00 AM EST SKINNY ([facility]) Zachary Marquis MD: [address], [place] [address], Ph. Attender: Zachary MARTÍNEZ - [facility] 07/27/2020 12:00:00 AM EDT SKINNY ([facility]) Zachary Marquis MD: [address], [address], [place] [address], Ph. Attender: Zachary MARTÍNEZ - [facility] 07/27/2020 12:00:00 AM EDT SKINNY ([facility]) Zachary Marquis MD: [address], [address], [place] [address], Ph. Attender: Zachary MARTÍNEZ - [facility] 07/27/2020 12:00:00 AM EDT SKINNY ([facility]) Zachary Marquis MD: [id number], [address], [place] [address], Ph. Attender: Zachary MARTÍNEZ - [facility] 07/27/2020 12:00:00 AM EDT SKINNY ([facility]) Zachary Marquis MD: [address], [address], [place] [address], Ph. Attender: Zachary MARTÍNEZ - [facility] 07/27/2020 12:00:00 AM EDT SKINNY ([facility]) Zachary Marquis MD: [address], [address], [place] [address], Ph. Attender: Zachary MARTÍNEZ - [facility] 07/27/2020 12:00:00 AM EDT SKINNY ([facility]) Zachary Marquis MD: [id number], [address], [place] [address], Ph. Attender: Zachary MARTÍNEZ - [facility] 07/14/2020 12:00:00 AM EDT SKINNY ([facility]) Zachary Marquis MD: [id number], [address], [place] [address], Ph. Attender: Zachary MARTÍNEZ - [facility] 07/14/2020 12:00:00 AM EDT SKINNY ([facility]) Zachary Marquis MD: [address], [address], [place] [address], Ph. Attender: Zachary MARTÍNEZ - [facility] 07/14/2020 12:00:00 AM EDT SKINNY ([facility]) Zachary Marquis MD: [id number], [place], [place] [address], Ph. Attender: Zachary Marquis MD [facility] 07/14/2020 12:00:00 AM EDT SKINNY ([facility]) Zachary Marquis MD: [id number], [address], [place] [address], Ph. Attender: Zachary Marquis MD [facility] 07/14/2020 12:00:00 AM EDT SKINNY ([facility]) Zachary Marquis MD: [address], [place], [place] [phone], Ph. Attender: Zachary Marquis MD [facility] 07/14/2020 12:00:00 AM EDT SKINNY ([facility]) Zachary Marquis MD: [address], [place], [place] [phone], Ph. Attender: Zachary Marquis MD [facility] 07/14/2020 12:00:00 AM EDT SKINNY ([facility]) Immunizations Vaccine Date Status Description Data Source(s) COVID-19 VACCINE Pfizer 12/17/2020 12:00:00 AM EDT completed [facility] Vaccine Series Complete: NOThis Data was Submitted to [facility] Via [employer]. Medications Medication Brand Name Start Date Product Form Dose Route Admi nistrative Instructions Pharmacy Instructions Status Indications Reaction Description Data Source(s) 8 HR Acetaminophen 650 MG Extended Release Oral Tablet [Tyle nol] Tylenol 8 Hour 06/30/2020 12:00:00 AM EDT active MEDENT ([facility]) 12 HR Guaifenesin 600 MG / Pseudoephedri ne Hydrochloride 60 MG Extended Release Oral Tablet Mucinex D 60 mg-600 mg tablet,extended release Mucinex D 60 mg-600 mg tablet,extended release completed 12 HR guaifenesin 600 MG / pseudoephedrine hydrochloride 60 MG Extended Release Oral Tablet SKINNY ([facility]) Lidocaine 0.05 MG/MG Topical Ointment lidocaine 5 % to pical ointment lidocaine 5 % topical ointment completed lidocaine 0.05 MG/MG Topical Ointment SKINNY ([facility]) Oseltamivir 75 MG Oral Capsule [Tamiflu] Tamiflu 75 mg capsule Tamiflu 75 mg capsule completed oseltamivir 75 MG Oral Capsule [Tamiflu] SKINNY ([facility]) Capsaicin 0.25 MG/ML Topical Cream capsaicin 0.025 % t opical cream capsaicin 0.025 % topical cream completed capsaicin 0.25 MG/ML Topical Cream SURPRISE ([facility]) 12 HR Guaifenesin 600 MG / Pseudoephedri ne Hydrochloride 60 MG Extended Release Oral Tablet Mucinex D 60 mg-600 mg tablet,extended release Mucinex D 60 mg-600 mg tablet,extended release completed 12 HR guaifenesin 600 MG / pseudoephedrine hydrochloride 60 MG Extended Release Oral Tablet SKINNY ([facility]) Oseltamivir 75 MG Oral Capsule [Tamiflu] Tamiflu 75 mg capsule Tamiflu 75 mg capsule completed oseltamivir 75 MG Oral Capsule [Tamiflu] SKINNY ([facility]) Carboxymethylcellulose Sodium 5 MG/ML Op hthalmic Solution Refresh Plus 0.5 % eye drops in a dropperette Refresh Plus 0.5 % eye drops in a dropperette completed carboxymethylcellulose sodiu m 5 MG/ML Ophthalmic Solution SKINNY ([facility]) valacyclovir 1000 MG Oral Tablet valacyclovir 1 gram t ablet valacyclovir 1 gram tablet completed valacyclovir 10 00 MG Oral Tablet SKINNY ([facility]) Dexamethasone 1 MG/ML / Tobramycin 3 MG/ ML Ophthalmic Suspension tobramycin 0.3 %-dexamethasone 0.1 % eye drops,suspension tobramycin 0.3 %-dexamethasone 0.1 % eye drops,suspension completed dexamethasone 1 MG/ML / tobramycin 3 MG/ML Ophthalmic Suspension SKINNY ([facility]) Carboxymethylcellulose Sodium 5 MG/ML Op hthalmic Solution Refresh Plus 0.5 % eye drops in a dropperette Refresh Plus 0.5 % eye drops in a dropperette completed carboxymethylcellulose sodiu m 5 MG/ML Ophthalmic Solution SKINNY ([facility]) Lidocaine 0.05 MG/MG Topical Ointment lidocaine 5 % to pical ointment lidocaine 5 % topical ointment completed lidocaine 0.05 MG/MG Topical Ointment SKINNY ([facility]) 12 HR Guaifenesin 600 MG / Pseudoephedri ne Hydrochloride 60 MG Extended Release Oral Tablet Mucinex D 60 mg-600 mg tablet,extended release Mucinex D 60 mg-600 mg tablet,extended release completed 12 HR guaifenesin 600 MG / pseudoephedrine hydrochloride 60 MG Extended Release Oral Tablet SKINNY ([facility]) Dexamethasone 1 MG/ML / Tobramycin 3 MG/ ML Ophthalmic Suspension tobramycin 0.3 %-dexamethasone 0.1 % eye drops,suspension tobramycin 0.3 %-dexamethasone 0.1 % eye drops,suspension completed dexamethasone 1 MG/ML / tobramycin 3 MG/ML Ophthalmic Suspension SKINNY ([facility]) valacyclovir 1000 MG Oral Tablet valacyclovir 1 gram t ablet valacyclovir 1 gram tablet completed valacyclovir 10 00 MG Oral Tablet SKINNY ([facility]) Hydroxyzine Hydrochloride 25 MG Oral Tab let Atarax 25 mg tablet Take 1 tablet as needed by oral route. Atarax 25 mg tablet Take 1 tablet as nee ded by oral route. 1 completed hydroxyzine hyd rochloride 25 MG Oral Tablet SKINNY ([facility]) Capsaicin 0.25 MG/ML Topical Cream capsaicin 0.025 % t opical cream capsaicin 0.025 % topical cream completed capsaicin 0.25 MG/ML Topical Cream SURPRISE ([facility]) Diclofenac Sodium 0.01 MG/MG Topical Gel [Voltaren] Voltaren 1 % topical gel as needed Voltaren 1 % topical gel as needed co mpleted diclofenac sodium 0.01 MG/MG Topical Gel [Voltaren] SKINNY ([facility]) Oseltamivir 75 MG Oral Capsule [Tamiflu] Tamiflu 75 mg capsule Tamiflu 75 mg capsule completed oseltamivir 75 MG Oral Capsule [Tamiflu] SKINNY ([facility]) Dexamethasone 1 MG/ML / Tobramycin 3 MG/ ML Ophthalmic Suspension tobramycin 0.3 %-dexamethasone 0.1 % eye drops,suspension tobramycin 0.3 %-dexamethasone 0.1 % eye drops,suspension completed dexamethasone 1 MG/ML / tobramycin 3 MG/ML Ophthalmic Suspension SKINNY ([facility]) Hydroxyzine Hydrochloride 25 MG Oral Tab let Atarax 25 mg tablet Take 1 tablet as needed by oral route. Atarax 25 mg tablet Take 1 tablet as nee ded by oral route. 1 completed hydroxyzine hyd rochloride 25 MG Oral Tablet SKINYN ([facility]) Dexamethasone 1 MG/ML / Tobramycin 3 MG/ ML Ophthalmic Suspension tobramycin 0.3 %-dexamethasone 0.1 % eye drops,suspension tobramycin 0.3 %-dexamethasone 0.1 % eye drops,suspension completed dexamethasone 1 MG/ML / tobramycin 3 MG/ML Ophthalmic Suspension SKINNY ([facility]) buspirone hydrochloride 15 MG Oral Tablet buspirone 15 mg tablet buspirone 15 mg tablet completed buspirone hydr ochloride 15 MG Oral Tablet SKINNY ([facility]) Carboxymethylcellulose Sodium 5 MG/ML Op hthalmic Solution Refresh Plus 0.5 % eye drops in a dropperette Refresh Plus 0.5 % eye drops in a dropperette completed carboxymethylcellulose sodiu m 5 MG/ML Ophthalmic Solution SKINNY ([facility]) Capsaicin 0.25 MG/ML Topical Cream capsaicin 0.025 % t opical cream capsaicin 0.025 % topical cream completed capsaicin 0.25 MG/ML Topical Cream SKINNY ([facility]) Lidocaine 0.05 MG/MG Topical Ointment lidocaine 5 % to pical ointment lidocaine 5 % topical ointment completed lidocaine 0.05 MG/MG Topical Ointment SKINNY ([facility]) valacyclovir 1000 MG Oral Tablet valacyclovir 1 gram t ablet valacyclovir 1 gram tablet completed valacyclovir 10 00 MG Oral Tablet SKINNY ([facility]) Hydroxyzine Hydrochloride 25 MG Oral Tab let Atarax 25 mg tablet Take 1 tablet as needed by oral route. Atarax 25 mg tablet Take 1 tablet as nee ded by oral route. 1 completed hydroxyzine hyd rochloride 25 MG Oral Tablet SKINNY ([facility]) Diclofenac Sodium 0.01 MG/MG Topical Gel [Voltaren] Voltaren 1 % topical gel as needed Voltaren 1 % topical gel as needed co mpleted diclofenac sodium 0.01 MG/MG Topical Gel [Voltaren] SKINNY ([facility]) Diclofenac Sodium 0.01 MG/MG Topical Gel [Voltaren] Voltaren 1 % topical gel as needed Voltaren 1 % topical gel as needed co mpleted diclofenac sodium 0.01 MG/MG Topical Gel [Voltaren] SKINNY ([facility]) Diclofenac Sodium 0.01 MG/MG Topical Gel [Voltaren] Voltaren 1 % topical gel as needed Voltaren 1 % topical gel as needed co mpleted diclofenac sodium 0.01 MG/MG Topical Gel [Voltaren] SKINNY ([facility]) valacyclovir 1000 MG Oral Tablet valacyclovir 1 gram t ablet valacyclovir 1 gram tablet completed valacyclovir 10 00 MG Oral Tablet SKINNY ([facility]) Dexamethasone 1 MG/ML / Tobramycin 3 MG/ ML Ophthalmic Suspension tobramycin 0.3 %-dexamethasone 0.1 % eye drops,suspension tobramycin 0.3 %-dexamethasone 0.1 % eye drops,suspension completed dexamethasone 1 MG/ML / tobramycin 3 MG/ML Ophthalmic Suspension SKINNY ([facility]) 12 HR Guaifenesin 600 MG / Pseudoephedri ne Hydrochloride 60 MG Extended Release Oral Tablet Mucinex D 60 mg-600 mg tablet,extended release Mucinex D 60 mg-600 mg tablet,extended release completed 12 HR guaifenesin 600 MG / pseudoephedrine hydrochloride 60 MG Extended Release Oral Tablet SKINNY ([facility]) Carboxymethylcellulose Sodium 5 MG/ML Op hthalmic Solution Refresh Plus 0.5 % eye drops in a dropperette Refresh Plus 0.5 % eye drops in a dropperette completed carboxymethylcellulose sodiu m 5 MG/ML Ophthalmic Solution SKINNY ([facility]) Oseltamivir 75 MG Oral Capsule [Tamiflu] Tamiflu 75 mg capsule Tamiflu 75 mg capsule completed oseltamivir 75 MG Oral Capsule [Tamiflu] SKINNY ([facility]) Oseltamivir 75 MG Oral Capsule [Tamiflu] Tamiflu 75 mg capsule Tamiflu 75 mg capsule completed oseltamivir 75 MG Oral Capsule [Tamiflu] SKINNY ([facility]) Diclofenac Sodium 0.01 MG/MG Topical Gel [Voltaren] Voltaren 1 % topical gel as needed Voltaren 1 % topical gel as needed co mpleted diclofenac sodium 0.01 MG/MG Topical Gel [Voltaren] SKINNY ([facility]) 12 HR Guaifenesin 600 MG / Pseudoephedri ne Hydrochloride 60 MG Extended Release Oral Tablet Mucinex D 60 mg-600 mg tablet,extended release Mucinex D 60 mg-600 mg tablet,extended release completed 12 HR guaifenesin 600 MG / pseudoephedrine hydrochloride 60 MG Extended Release Oral Tablet KSINNY ([facility]) Dexamethasone 1 MG/ML / Tobramycin 3 MG/ ML Ophthalmic Suspension tobramycin 0.3 %-dexamethasone 0.1 % eye drops,suspension tobramycin 0.3 %-dexamethasone 0.1 % eye drops,suspension completed dexamethasone 1 MG/ML / tobramycin 3 MG/ML Ophthalmic Suspension SKINNY ([facility]) Lidocaine 0.05 MG/MG Topical Ointment lidocaine 5 % to pical ointment lidocaine 5 % topical ointment completed lidocaine 0.05 MG/MG Topical Ointment SKINNY ([facility]) Capsaicin 0.25 MG/ML Topical Cream capsaicin 0.025 % t opical cream capsaicin 0.025 % topical cream completed capsaicin 0.25 MG/ML Topical Cream SKINNY ([facility]) valacyclovir 1000 MG Oral Tablet valacyclovir 1 gram t ablet valacyclovir 1 gram tablet completed valacyclovir 10 00 MG Oral Tablet SKINNY ([facility]) valacyclovir 1000 MG Oral Tablet valacyclovir 1 gram t ablet valacyclovir 1 gram tablet completed valacyclovir 10 00 MG Oral Tablet SKINNY ([facility]) Lidocaine 0.05 MG/MG Topical Ointment lidocaine 5 % to pical ointment lidocaine 5 % topical ointment completed lidocaine 0.05 MG/MG Topical Ointment SKINNY ([facility]) Capsaicin 0.25 MG/ML Topical Cream capsaicin 0.025 % t opical cream capsaicin 0.025 % topical cream completed capsaicin 0.25 MG/ML Topical Cream SKINNY ([facility]) Dexamethasone 1 MG/ML / Tobramycin 3 MG/ ML Ophthalmic Suspension tobramycin 0.3 %-dexamethasone 0.1 % eye drops,suspension tobramycin 0.3 %-dexamethasone 0.1 % eye drops,suspension completed dexamethasone 1 MG/ML / tobramycin 3 MG/ML Ophthalmic Suspension SKINNY ([facility]) Carboxymethylcellulose Sodium 5 MG/ML Op hthalmic Solution Refresh Plus 0.5 % eye drops in a dropperette Refresh Plus 0.5 % eye drops in a dropperette completed carboxymethylcellulose sodiu m 5 MG/ML Ophthalmic Solution SKINNY ([facility]) Lidocaine 0.05 MG/MG Topical Ointment lidocaine 5 % to pical ointment lidocaine 5 % topical ointment completed lidocaine 0.05 MG/MG Topical Ointment SKINNY ([facility]) Diclofenac Sodium 0.01 MG/MG Topical Gel [Voltaren] Voltaren 1 % topical gel as needed Voltaren 1 % topical gel as needed co mpleted diclofenac sodium 0.01 MG/MG Topical Gel [Voltaren] SKINNY ([facility]) Capsaicin 0.25 MG/ML Topical Cream capsaicin 0.025 % t opical cream capsaicin 0.025 % topical cream completed capsaicin 0.25 MG/ML Topical Cream SKINNY ([facility]) 12 HR Guaifenesin 600 MG / Pseudoephedri ne Hydrochloride 60 MG Extended Release Oral Tablet Mucinex D 60 mg-600 mg tablet,extended release Mucinex D 60 mg-600 mg tablet,extended release completed 12 HR guaifenesin 600 MG / pseudoephedrine hydrochloride 60 MG Extended Release Oral Tablet SKINNY ([facility]) Capsaicin 0.25 MG/ML Topical Cream capsaicin 0.025 % t opical cream capsaicin 0.025 % topical cream completed capsaicin 0.25 MG/ML Topical Cream SKINNY ([facility]) Lidocaine 0.05 MG/MG Topical Ointment lidocaine 5 % to pical ointment lidocaine 5 % topical ointment completed lidocaine 0.05 MG/MG Topical Ointment SKINNY ([facility]) 12 HR Guaifenesin 600 MG / Pseudoephedri ne Hydrochloride 60 MG Extended Release Oral Tablet Mucinex D 60 mg-600 mg tablet,extended release Mucinex D 60 mg-600 mg tablet,extended release completed 12 HR guaifenesin 600 MG / pseudoephedrine hydrochloride 60 MG Extended Release Oral Tablet SKINNY ([facility]) Oseltamivir 75 MG Oral Capsule [Tamiflu] Tamiflu 75 mg capsule Tamiflu 75 mg capsule completed oseltamivir 75 MG Oral Capsule [Tamiflu] SKINNY ([facility]) Oseltamivir 75 MG Oral Capsule [Tamiflu] Tamiflu 75 mg capsule Tamiflu 75 mg capsule completed oseltamivir 75 MG Oral Capsule [Tamiflu] SKINNY ([facility]) Diclofenac Sodium 0.01 MG/MG Topical Gel [Voltaren] Voltaren 1 % topical gel as needed Voltaren 1 % topical gel as needed co mpleted diclofenac sodium 0.01 MG/MG Topical Gel [Voltaren] SKINNY ([facility]) Carboxymethylcellulose Sodium 5 MG/ML Op hthalmic Solution Refresh Plus 0.5 % eye drops in a dropperette Refresh Plus 0.5 % eye drops in a dropperette completed carboxymethylcellulose sodiu m 5 MG/ML Ophthalmic Solution SKINNY ([facility]) valacyclovir 1000 MG Oral Tablet valacyclovir 1 gram t ablet valacyclovir 1 gram tablet completed valacyclovir 10 00 MG Oral Tablet SKINNY ([facility]) Carboxymethylcellulose Sodium 5 MG/ML Op hthalmic Solution Refresh Plus 0.5 % eye drops in a dropperette Refresh Plus 0.5 % eye drops in a dropperette completed carboxymethylcellulose sodiu m 5 MG/ML Ophthalmic Solution SKINNY ([facility]) Insurance Providers Payer name Policy type / Coverage type Policy ID Covered libertarian ID Covered libertarian's relationship to hussein Policy Hussein Plan Information [facility] ACTIVE DUTY [id number] SP [id number] [facility] HUMANA - O/P [id number] Problems, Conditions, and Diagnoses Code Display Name Description Problem Type Effective Dates Data Source(s) 2044750 Lumbosacral radiculopathy Lumbosacral radiculopathy Pr oblem 06/30/2020 12:00:00 AM EDT [facility], [facility] [id number] Cervical radiculopathy Cervical radiculopathy Problem 06/30/2020 12:00:00 AM EDT [facility] ([facility], ) [id number] Chronic neck pain Chronic neck pain Problem 06/03 12:00:00 AM EDT [facility] ([facility], ) [id number] Chronic low back pain Chronic low back pain Problem 06/30/2020 12:00:00 AM EDT [facility] ([facility], ) Surgeries/Procedures Procedure Description Date Indications Data Source(s) Needle electromyography, each extremity, with related paraspinal areas, when performed, done with nerve conduction, amplitude and latency/velocity study; complete, five or more muscles studied, innervated by three or more nerves or four or more spinal levels (list separately in addition to the code for primary procedure). 07/02/2020 12:00:00 AM EDT MED[facility] T ([facility], ) Needle electromyography, each extremity, with related paraspinal areas, when performed, done with nerve conduction, amplitude and latency/velocity study; complete, five or more muscles studied, innervated by three or more nerves or four or more spinal levels (list separately in addition to the code for primary procedure). 07/02/2020 12:00:00 AM EDT MED[facility] T ([facility], ) 35852 Nerve conduction studies 13 or more studies NEW 201207/02/2020 12:00:00 AM EDT [facility] ([facility], ) Needle electromyography, each extremity, with related paraspinal areas, when performed, done with nerve conduction, amplitude and latency/velocity study; complete, five or more muscles studied, innervated by three or more nerves or four or more spinal levels (list separately in addition to the code for primary procedure). 07/01/2020 12:00:00 AM EDT MED[facility] T ([facility], ) Needle electromyography, each extremity, with related paraspinal areas, when performed, done with nerve conduction, amplitude and latency/velocity study; complete, five or more muscles studied, innervated by three or more nerves or four or more spinal levels (list separately in addition to the code for primary procedure). 07/01/2020 12:00:00 AM EDT MED[facility] T ([facility], ) Needle Electromyography Non Extremity Done With Nerve Conduc tion 07/01/2020 12:00:00 AM EDT [facility] ([facility], ) 69769 Nerve conduction studies 13 or more studies NEW 201207/01/2020 12:00:00 AM EDT [facility] ([facility]) Needle Electromyography Non Extremity Done With Nerve Conduc tion 07/01/2020 12:00:00 AM EDT [facility] ([facility]) Results ID Date Data Source [id number] 08/19/2020 08:53:00 AM EST [facility] Name Value Range Interpretation Code Description Data Paula rce(s) Supporting Document(s) SARS coronavirus 2 RNA [facility] This lab was ordered by [facility] and reported by [facility]. ID Date Data Source [id number] 08/06/2020 08:40:00 AM EST [facility] Name Value Range Interpretation Code Description Data Paula rce(s) Supporting Document(s) SARS coronavirus 2 RNA [facility] This lab was ordered by [facility] and reported by [facility]. Procedure Social History No Information Vital Signs ID Date Data Source UNK Name Value Range Interpretation Code Description Data Source(s) Diastolic blood pressure 68 mm[Hg] 68 mm[Hg] SKINNY ([facility]) Body height 69 [in_i] 69 [in_i] SKINNY ([facility]) Systolic blood pressure 122 mm[Hg] 122 mm[Hg] A THENA ([facility]) Diastolic blood pressure 68 mm[Hg] 68 mm[Hg] SKINNY ([facility]) Body height 69 [in_i] 69 [in_i] SKINNY ([facility]) Systolic blood pressure 122 mm[Hg] 122 mm[Hg] A THENA ([facility]) Diastolic blood pressure 77 mm[Hg] 77 mm[Hg] SKINNY ([facility]) Body height 69 [in_i] 69 [in_i] SKINNY ([facility]) Systolic blood pressure 142 mm[Hg] 142 mm[Hg] A THENA ([facility]) Diastolic blood pressure 77 mm[Hg] 77 mm[Hg] SKINNY ([facility]) Body height 69 [in_i] 69 [in_i] SKINNY ([facility]) Systolic blood pressure 142 mm[Hg] 142 mm[Hg] A THENA ([facility]) Diastolic blood pressure 77 mm[Hg] 77 mm[Hg] SKINNY ([facility]) Body height 69 [in_i] 69 [in_i] SKINNY ([facility]) Systolic blood pressure 142 mm[Hg] 142 mm[Hg] A THENA ([facility]) Diastolic blood pressure 70 mm[Hg] 70 mm[Hg] SKINNY ([facility]) Body height 69 [in_i] 69 [in_i] SKINNY ([facility]) Body mass index (BMI) [Ratio] 28.1 kg/m2 28.1 k g/m2 SKINNY ([facility]) Systolic blood pressure 120 mm[Hg] 120 mm[Hg] A THENA ([facility]) Body weight 190 [lb_av] 190 [lb_av] SKINNY ([facility]) Diastolic blood pressure 70 mm[Hg] 70 mm[Hg] SKINNY ([facility]) Body height 69 [in_i] 69 [in_i] SKINNY ([facility]) Body mass index (BMI) [Ratio] 28.1 kg/m2 28.1 k g/m2 SKINNY ([facility]) Systolic blood pressure 120 mm[Hg] 120 mm[Hg] A THENA ([facility]) Body weight 190 [lb_av] 190 [lb_av] SKINNY ([facility]) Diastolic blood pressure 70 mm[Hg] 70 mm[Hg] SKINNY ([facility]) Body height 69 [in_i] 69 [in_i] SKINNY ([facility]) Body mass index (BMI) [Ratio] 28.1 kg/m2 28.1 k g/m2 SKINNY ([facility]) Systolic blood pressure 120 mm[Hg] 120 mm[Hg] A THENA ([facility]) Body weight 190 [lb_av] 190 [lb_av] SKINNY ([facility]) Diastolic blood pressure 70 mm[Hg] 70 mm[Hg] SKINNY ([facility]) Body height 69 [in_i] 69 [in_i] SKINNY ([facility]) Body mass index (BMI) [Ratio] 28.1 kg/m2 28.1 k g/m2 SKINNY ([facility]) Systolic blood pressure 120 mm[Hg] 120 mm[Hg] A THENA ([facility]) Body weight 190 [lb_av] 190 [lb_av] SKINNY ([facility]) Diastolic blood pressure 70 mm[Hg] 70 mm[Hg] SKINNY ([facility]) Diastolic blood pressure 70 mm[Hg] 70 mm[Hg] SKINNY ([facility]) Body height 69 [in_i] 69 [in_i] SKINNY ([facility]) Body mass index (BMI) [Ratio] 28.1 kg/m2 28.1 k g/m2 SKINNY ([facility]) Systolic blood pressure 120 mm[Hg] 120 mm[Hg] A THENA ([facility]) Body weight 190 [lb_av] 190 [lb_av] SKINNY ([facility]) Body height 69 [in_i] 69 [in_i] SKINNY ([facility]) Body mass index (BMI) [Ratio] 28.1 kg/m2 28.1 k g/m2 SKINNY ([facility]) Systolic blood pressure 120 mm[Hg] 120 mm[Hg] A THENA ([facility]) Body weight 190 [lb_av] 190 [lb_av] SKINNY ([facility]) Diastolic blood pressure 70 mm[Hg] 70 mm[Hg] SKINNY ([facility]) Body height 69 [in_i] 69 [in_i] SKINNY ([facility]) Body mass index (BMI) [Ratio] 28.1 kg/m2 28.1 k g/m2 SKINNY ([facility]) Systolic blood pressure 120 mm[Hg] 120 mm[Hg] A THENA ([facility]) Body weight 190 [lb_av] 190 [lb_av] SKINNY ([facility]) Systolic blood pressure 120 mm[Hg] 120 mm[Hg] M EDENT ([facility], ) Body height 69 [in_i] 69 [in_i] MEDENT ([facility], ) 5'9" Sophia body weight 160 [lb_av] 160 [lb_av] MEDEN T ([facility], ) Body weight 185.00 [lb_av] 185.00 [lb_av] MEDEN T ([facility], ) Diastolic blood pressure 80 mm[Hg] 80 mm[Hg] MEDENT ([facility]) Body mass index (BMI) [Ratio] 27.3 kg/m2 27.3 k g/m2 [facility] ([facility]) Heart rate 72 /min 72 /min [facility] Patient Treatment Plan of Care Planned Activity Planned Date Details Description Data Source (s) Diclofenac Sodium 0.01 MG/MG Topical Gel [Voltaren] SKINNY ([facility]) valacyclovir 1000 MG Oral Tablet SKINNY ([facility]) Dexamethasone 1 MG/ML / Tobramycin 3 MG/ML Ophthalmic Suspension SKNINY ([facility]) Oseltamivir 75 MG Oral Capsule [Tamiflu] SKINNY ([facility]) Carboxymethylcellulose Sodium 5 MG/ML Ophthalmic Solution SKINNY ([facility]) 12 HR Guaifenesin 600 MG / Pseudoephedri ne Hydrochloride 60 MG Extended Release Oral Tablet [facility]) Lidocaine 0.05 MG/MG Topical Ointment SKINNY ([facility]) Capsaicin 0.25 MG/ML Topical Cream SKINNY ([facility]) Hydroxyzine Hydrochloride 25 MG Oral Tablet SKINNY ([facility]) Diclofenac Sodium 0.01 MG/MG Topical Gel [Voltaren] SKINNY ([facility]) valacyclovir 1000 MG Oral Tablet SKINNY ([facility]) Dexamethasone 1 MG/ML / Tobramycin 3 MG/ML Ophthalmic Suspension SKINNY ([facility]) Oseltamivir 75 MG Oral Capsule [Tamiflu] SKINNY ([facility]) Carboxymethylcellulose Sodium 5 MG/ML Ophthalmic Solution SKINNY ([facility]) 12 HR Guaifenesin 600 MG / Pseudoephedri ne Hydrochloride 60 MG Extended Release Oral Tablet SKINNY ([facility]) Lidocaine 0.05 MG/MG Topical Ointment SKINNY ([facility]) Capsaicin 0.25 MG/ML Topical Cream SKINNY ([facility]) Hydroxyzine Hydrochloride 25 MG Oral Tablet SKINNY ([facility]) Diclofenac Sodium 0.01 MG/MG Topical Gel [Voltaren] SKINNY ([facility]) valacyclovir 1000 MG Oral Tablet SKINNY ([facility]) Dexamethasone 1 MG/ML / Tobramycin 3 MG/ML Ophthalmic Suspension SKINNY ([facility]) Oseltamivir 75 MG Oral Capsule [Tamiflu] SKINNY ([facility]) Carboxymethylcellulose Sodium 5 MG/ML Ophthalmic Solution SKINNY ([facility]) 12 HR Guaifenesin 600 MG / Pseudoephedri ne Hydrochloride 60 MG Extended Release Oral Tablet SK[facility]NY ([facility]) Lidocaine 0.05 MG/MG Topical Ointment SKINNY ([facility]) Capsaicin 0.25 MG/ML Topical Cream SKINNY ([facility]) buspirone hydrochloride 15 MG Oral Tablet SKINNY ([facility]) Hydroxyzine Hydrochloride 25 MG Oral Tablet SKINNY ([facility]) Diclofenac Sodium 0.01 MG/MG Topical Gel [Voltaren] SKINNY ([facility]) valacyclovir 1000 MG Oral Tablet SKINNY ([facility]) Dexamethasone 1 MG/ML / Tobramycin 3 MG/ML Ophthalmic Suspension SKINNY ([facility]) Oseltamivir 75 MG Oral Capsule [Tamiflu] SKINNY ([facility]) Carboxymethylcellulose Sodium 5 MG/ML Ophthalmic Solution SKINNY ([facility]) 12 HR Guaifenesin 600 MG / Pseudoephedri ne Hydrochloride 60 MG Extended Release Oral Tablet [facility] ([facility]) Lidocaine 0.05 MG/MG Topical Ointment SKINNY ([facility]) Capsaicin 0.25 MG/ML Topical Cream SKINNY ([facility]) Diclofenac Sodium 0.01 MG/MG Topical Gel [Voltaren] SKINNY ([facility]) valacyclovir 1000 MG Oral Tablet SKINNY ([facility]) Dexamethasone 1 MG/ML / Tobramycin 3 MG/ML Ophthalmic Suspension SKINNY ([facility]) Oseltamivir 75 MG Oral Capsule [Tamiflu] SKINNY ([facility]) Carboxymethylcellulose Sodium 5 MG/ML Ophthalmic Solution SKINNY ([facility]) 12 HR Guaifenesin 600 MG / Pseudoephedri ne Hydrochloride 60 MG Extended Release Oral Tablet SKINNY ([facility]) Lidocaine 0.05 MG/MG Topical Ointment SKINNY ([facility]) Capsaicin 0.25 MG/ML Topical Cream SKINNY ([facility]) Diclofenac Sodium 0.01 MG/MG Topical Gel [Voltaren] SKINNY ([facility]) valacyclovir 1000 MG Oral Tablet SKINNY ([facility]) Dexamethasone 1 MG/ML / Tobramycin 3 MG/ML Ophthalmic Suspension SKINNY ([facility]) Oseltamivir 75 MG Oral Capsule [Tamiflu] SKINNY ([facility]) Carboxymethylcellulose Sodium 5 MG/ML Ophthalmic Solution SKINNY ([facility]) 12 HR Guaifenesin 600 MG / Pseudoephedri ne Hydrochloride 60 MG Extended Release Oral Tablet SK[facility] ([facility]) Lidocaine 0.05 MG/MG Topical Ointment SKINNY ([facility]) Capsaicin 0.25 MG/ML Topical Cream SKINNY ([facility]) Diclofenac Sodium 0.01 MG/MG Topical Gel [Voltaren] SKINNY ([facility]) valacyclovir 1000 MG Oral Tablet SKINNY ([facility]) Dexamethasone 1 MG/ML / Tobramycin 3 MG/ML Ophthalmic Suspension SKINNY ([facility]) Oseltamivir 75 MG Oral Capsule [Tamiflu] SKINNY ([facility]) Carboxymethylcellulose Sodium 5 MG/ML Ophthalmic Solution SKINNY ([facility]) 12 HR Guaifenesin 600 MG / Pseudoephedri ne Hydrochloride 60 MG Extended Release Oral Tablet SKINNY ([facility]) Lidocaine 0.05 MG/MG Topical Ointment SKINNY ([facility]) Capsaicin 0.25 MG/ML Topical Cream SKINNY ([facility])
--- NOTE | 2021-07-17 11:54 | REP ---
INDICATION: TRAUMA COMPARISON: None. TECHNIQUE: AP, lateral, bilateral oblique views. FINDINGS: Predominately anterolateral swelling is appreciated and lateral view best demonstrates a relatively nondisplaced oblique fracture of the distal fibular metaphysis. There is also a nondisplaced acute avulsion fracture at the tip of the medial malleolus. The ankle mortise appears intact. IMPRESSION: 1. Oblique distal fibular metaphyseal fracture and nondisplaced medial malleolar fracture. <Electronically signed by Donn Goodson > 07/17/21 [id number]
--- OUTSIDE RECORDS SUMMARY | 2021-07-17 12:03 | CCD ---
Author Author [facility] Address Unknown Phone Unavailable Care Team Providers Care Jewelry Manager Name Role Phone Adrian Marquis MD Unavailable [...] montano MD Unavailable Unavailable Jumalon, M Kelli SCANNING SUPERVISOR Unavailable Unavailable Jumalon, M Kelli SCANNING SUPERVISOR Unavailable Unavailable Jumalon, M Kelli SCANNING SUPERVISOR Unavailable Unavailable Jumalon, M Kelli SCANNING SUPERVISOR Unavailable Unavailable Jumalon, M Kelli SCANNING SUPERVISOR Unavailable Unavailable Jumalon, M Kelli SCANNING SUPERVISOR Unavailable Unavailable Jumalon, M Kelli SCANNING SUPERVISOR Unavailable Unavailable Jumalon, M Kelli SCANNING SUPERVISOR Unavailable Unavailable Jumalon, M Kelli SCANNING SUPERVISOR Unavailable Unavailable Jumalon, M Kelli SCANNING SUPERVISOR Unavailable Unavailable Jumalon, M Kelli SCANNING SUPERVISOR Unavailable Unavailable Jumalon, M Kelli SCANNING SUPERVISOR Unavailable Unavailable Jumalon, M Kelli SCANNING SUPERVISOR Unavailable Unavailable Jumalon, M Kelli SCANNING SUPERVISOR Unavailable Unavailable Jumalon, M Kelli SCANNING SUPERVISOR Unavailable Unavailable Jumalon, M Kelli SCANNING SUPERVISOR Unavailable Unavailable Jumalon, M Kelli SCANNING SUPERVISOR Unavailable Unavailable Jumalon, M Kelli SCANNING SUPERVISOR Unavailable Unavailable Jumalon, M Kelli SCANNING SUPERVISOR Unavailable Unavailable Jumalon, M Kelli SCANNING SUPERVISOR Unavailable Unavailable Jumalon, M Kelli SCANNING SUPERVISOR Unavailable Unavailable Jumalon, M Kelli SCANNING SUPERVISOR Unavailable Unavailable Jumalon, M Kelli SCANNING SUPERVISOR Unavailable Unavailable Jumalon, M Kelli SCANNING SUPERVISOR Unavailable Unavailable Jumalon, M Kelli SCANNING SUPERVISOR Unavailable Unavailable Jumalon, M Kelli SCANNING SUPERVISOR Unavailable Unavailable Jumalon, M Kelli SCANNING SUPERVISOR Unavailable Unavailable Jumalon, M Kelli SCANNING SUPERVISOR Unavailable Unavailable Jumalon, M Kelli SCANNING SUPERVISOR Unavailable Unavailable Jumalon, M Kelli SCANNING SUPERVISOR Unavailable Unavailable Re-disclosure Warning The records that [...] is protected by Article 27-F of the [facility] Public Health law. If you continue you may have access to information: Regarding HIV / AIDS; Provided by facilities licensed or operated by the [facility] Office of Mental Health; or Provided by the [facility] Office for People With Developmental Disabilities. If such information is present, then the following [facility] mandated warning applies: This information has been [...] law may result in a fine or shelter sentence or both. A general authorization for the release of medical or other information is NOT sufficient authorization for further disc losure. Allergies and Adverse Reactions Type Description Substance Reaction Status Data Source(s ) Allergy to substance Mild to Moderate valacyclovir Rash [facility] ([facility]) Allergy to substance Mild to Moderate valacyclovir Rash [facility] ([facility]) Allergy to substance Mild to Moderate valacyclovir Rash [place]INNY ([facility]) Allergy to substance Mild to Moderate valacyclovir Rash [place] ([facility]) Allergy to substance Mild to Moderate valacyclovir Rash [place]IN[facility] ([facility]) Allergy to substance Mild to Moderate valacyclovir Rash [facility] ([facility]) Allergy to substance Mild to Moderate valacyclovir Rash [facility]IN[facility] ([facility]) Encounters Encounter Providers Location Date Indications Data Source(s ) Kelli Murray, AREA MANAGER: [id number], [place] [address], Ph. Attender: Kelli Murray [facility] - [facility] 01/04/2021 12:00:00 AM EDT ATHE NA ([facility]) Kelli Murray, AREA MANAGER: [id number], [address], [place] [address], Ph. Attender: Kelli Murray [facility] - [facility] 12/01/2020 12:00:00 AM EST ATHE NA ([facility]) Kelli Murray, AREA MANAGER: [id number], [place] [address], Ph. Attender: Kelli Murray [facility] - [facility] 12/01/2020 12:00:00 AM EST ATHE NA ([facility]) Kelli Murray, AREA MANAGER: [id number], [place] [address], Ph. Attender: Kelli Murray [facility] - [facility] 10/20/2020 12:00:00 AM EST ATHE NA ([facility]) Kelli Murray, AREA MANAGER: [id number], [place] [address], Ph. Attender: Kelli Murray [facility] - [facility] 10/20/2020 12:00:00 AM EST ATHE NA ([facility]) Kelli Murray, AREA MANAGER: [id number], [place] [address], Ph. Attender: Kelli Murray [facility] - [facility] 10/20/2020 12:00:00 AM EST ATHE NA ([facility]) Zachary Marquis MD: [id number], [place] [address], Ph. Attender: Zachary Marquis [place] - [facility] 08/24/2020 12:00:00 AM EST SKINNY ([facility]) Zachary Marquis MD: [id number], [address], [place] [address], Ph. Attender: Zachary Marquis MD [place] - [facility] 08/24/2020 12:00:00 AM EST SKINNY ([facility]) Zachary Marquis MD: [id number], [address], [place] [address], Ph. Attender: Zachary Marquis MD [place] - [facility] 08/24/2020 12:00:00 AM EST SKINNY ([facility]) Zachary Marquis MD: [id number], [address], [place] [address], Ph. Attender: Zachary Marquis MD [place] - [facility] 08/24/2020 12:00:00 AM EST SKINNY ([facility]) Zachary Marquis MD: [id number], [address], [place] [address], Ph. Attender: Zachary Marquis MD [place] - [facility] 08/10/2020 12:00:00 AM EST SKINNY ([facility]) Zahcary Marquis MD: [id number], [address], [place] [address], Ph. Attender: Zachary MARTÍNEZ - [facility] 08/10/2020 12:00:00 AM EST SKINNY ([facility]) Zachary Marquis MD: [id number], [address], [place] [address], Ph. Attender: Zachary MARTÍNEZ - [facility] 08/10/2020 12:00:00 AM EST SKINNY ([facility]) Zachary Marquis MD: [id number], [address], [place] [address], Ph. Attender: Zachary MARTÍNEZ - [facility] 08/10/2020 12:00:00 AM EST SKINNY ([facility]) Zachary Marquis MD: [id number], [address], [place] [address], Ph. Attender: Zachary MARTÍNEZ - [facility] 08/10/2020 12:00:00 AM EST SKINNY ([facility]) Zachary Marquis MD: [id number], [address], [place] [address], Ph. Attender: Zachary MARTÍNEZ - [facility] 07/27/2020 12:00:00 AM EDT SKINNY ([facility]) Zachary Marquis MD: [id number], [address], [place] [address], Ph. Attender: Zachary MARTÍNEZ - [facility] 07/27/2020 12:00:00 AM EDT SKINNY ([facility]) Zachary Marquis MD: [id number], [address], [place] [address], Ph. Attender: Zachary MARTÍNEZ - [facility] 07/27/2020 12:00:00 AM EDT SKINNY ([facility]) Zachary Marquis MD: [id number], [address], [place] [address], Ph. Attender: Zachary Marquis MD [place] - [facility] 07/27/2020 12:00:00 AM EDT SKINNY ([facility]) Zachary Marquis MD: [id number], [address], [place] [address], Ph. Attender: Zachary MARTÍNEZ - [facility] 07/27/2020 12:00:00 AM EDT SKINNY ([facility]) Zachary Marquis MD: [id number], [address], [place] [address], Ph. Attender: Zachary MARTÍNEZ - [facility] 07/27/2020 12:00:00 AM EDT SKINNY ([facility]) Zachary Marquis MD: [id number], [address], [place] [address], Ph. Attender: Zachary MARTÍNEZ - [facility] 07/14/2020 12:00:00 AM EDT SKINNY ([facility]) Zachary Marquis MD: [id number], [address], [place] [address], Ph. Attender: Zachary MARTÍNEZ - [facility] 07/14/2020 12:00:00 AM EDT SKINNY ([facility]) Zachary Marquis MD: [id number], [address], [place] [address], Ph. Attender: Zachary MARTÍNEZ - [facility] 07/14/2020 12:00:00 AM EDT SKINNY ([facility]) Zachary Marquis MD: [id number], [place], [place] [phone], Ph. Attender: Zachary Marquis MD [facility] 07/14/2020 12:00:00 AM EDT SKINNY ([facility]) Zachary Marquis MD: [id number], [address], [place] [address], Ph. Attender: Zachary Marquis MD [facility] 07/14/2020 12:00:00 AM EDT SKINNY ([facility]) Zachary Marquis MD: [id number], [facility] [place], [place] [address], Ph. Attender: Zachary Marquis MD [facility] 07/14/2020 12:00:00 AM EDT SKINNY ([facility]) Zachary Marquis MD: [id number], [facility] [place], [place] [address], Ph. Attender: Zachary Marquis MD [facility] 07/14/2020 12:00:00 AM EDT SKINNY ([facility]) Immunizations Vaccine Date Status Description Data Source(s) COVID-19 VACCINE Pfizer 12/17/2020 12:00:00 AM EDT completed [place] Vaccine Series Complete: NOThis Data was Submitted to [facility] Via [employer]. Medications Medication Brand Name Start Date Product Form Dose Route Admi nistrative Instructions Pharmacy Instructions Status Indications Reaction Description Data Source(s) 8 HR Acetaminophen 650 MG Extended Release Oral Tablet [Tyle nol] Tylenol 8 Hour 06/30/2020 12:00:00 AM EDT active MEDENT ([facility]) 12 HR Guaifenesin 600 MG / Pseudoephedri ne Hydrochloride 60 MG Extended Release Oral Tablet Mucinex D 60 mg-600 mg tablet,extended release Mucinex D 60 mg-600 mg tablet,extended release completed 12 HR guaifenesin 600 MG / pseudoephedrine hydrochloride 60 MG Extended Release Oral Tablet SKINNY ([facility]) Lidocaine 0.05 MG/MG Topical Ointment lidocaine 5 % to pical ointment lidocaine 5 % topical ointment completed lidocaine 0.05 MG/MG Topical Ointment [place] ([facility]) Oseltamivir 75 MG Oral Capsule [Tamiflu] Tamiflu 75 mg capsule Tamiflu 75 mg capsule completed oseltamivir 75 MG Oral Capsule [Tamiflu] SKINNY ([facility]) Capsaicin 0.25 MG/ML Topical Cream capsaicin 0.025 % t opical cream capsaicin 0.025 % topical cream completed capsaicin 0.25 MG/ML Topical Cream [place] ([facility]) 12 HR Guaifenesin 600 MG / Pseudoephedri ne Hydrochloride 60 MG Extended Release Oral Tablet Mucinex D 60 mg-600 mg tablet,extended release Mucinex D 60 mg-600 mg tablet,extended release completed 12 HR guaifenesin 600 MG / pseudoephedrine hydrochloride 60 MG Extended Release Oral Tablet SKINNY ([facility]) Oseltamivir 75 MG Oral Capsule [Tamiflu] Tamiflu 75 mg capsule Tamiflu 75 mg capsule completed oseltamivir 75 MG Oral Capsule [Tamiflu] SKINNY ([facility]) Carboxymethylcellulose Sodium 5 MG/ML Op hthalmic Solution Refresh Plus 0.5 % eye drops in a dropperette Refresh Plus 0.5 % eye drops in a dropperette completed carboxymethylcellulose sodiu m 5 MG/ML Ophthalmic Solution SKINNY ([facility]) valacyclovir 1000 MG Oral Tablet valacyclovir 1 gram t ablet valacyclovir 1 gram tablet completed valacyclovir 10 00 MG Oral Tablet SKINNY ([facility]) Dexamethasone 1 MG/ML / Tobramycin 3 MG/ ML Ophthalmic Suspension tobramycin 0.3 %-dexamethasone 0.1 % eye drops,suspension tobramycin 0.3 %-dexamethasone 0.1 % eye drops,suspension completed dexamethasone 1 MG/ML / tobramycin 3 MG/ML Ophthalmic Suspension SKINNY ([facility]) Carboxymethylcellulose Sodium 5 MG/ML Op hthalmic Solution Refresh Plus 0.5 % eye drops in a dropperette Refresh Plus 0.5 % eye drops in a dropperette completed carboxymethylcellulose sodiu m 5 MG/ML Ophthalmic Solution SKINNY ([facility]) Lidocaine 0.05 MG/MG Topical Ointment lidocaine 5 % to pical ointment lidocaine 5 % topical ointment completed lidocaine 0.05 MG/MG Topical Ointment SKINNY ([facility]) 12 HR Guaifenesin 600 MG / Pseudoephedri ne Hydrochloride 60 MG Extended Release Oral Tablet Mucinex D 60 mg-600 mg tablet,extended release Mucinex D 60 mg-600 mg tablet,extended release completed 12 HR guaifenesin 600 MG / pseudoephedrine hydrochloride 60 MG Extended Release Oral Tablet SKINNY ([facility]) Dexamethasone 1 MG/ML / Tobramycin 3 MG/ ML Ophthalmic Suspension tobramycin 0.3 %-dexamethasone 0.1 % eye drops,suspension tobramycin 0.3 %-dexamethasone 0.1 % eye drops,suspension completed dexamethasone 1 MG/ML / tobramycin 3 MG/ML Ophthalmic Suspension SKINNY ([facility]) valacyclovir 1000 MG Oral Tablet valacyclovir 1 gram t ablet valacyclovir 1 gram tablet completed valacyclovir 10 00 MG Oral Tablet SKINNY ([facility]) Hydroxyzine Hydrochloride 25 MG Oral Tab let Atarax 25 mg tablet Take 1 tablet as needed by oral route. Atarax 25 mg tablet Take 1 tablet as nee ded by oral route. 1 completed hydroxyzine hyd rochloride 25 MG Oral Tablet SKINNY ([facility]) Capsaicin 0.25 MG/ML Topical Cream capsaicin 0.025 % t opical cream capsaicin 0.025 % topical cream completed capsaicin 0.25 MG/ML Topical Cream SKINNY ([facility]) Diclofenac Sodium 0.01 MG/MG Topical Gel [Voltaren] Voltaren 1 % topical gel as needed Voltaren 1 % topical gel as needed co mpleted diclofenac sodium 0.01 MG/MG Topical Gel [Voltaren] SKINNY ([facility]) Oseltamivir 75 MG Oral Capsule [Tamiflu] Tamiflu 75 mg capsule Tamiflu 75 mg capsule completed oseltamivir 75 MG Oral Capsule [Tamiflu] SKINNY ([facility]) Dexamethasone 1 MG/ML / Tobramycin 3 MG/ ML Ophthalmic Suspension tobramycin 0.3 %-dexamethasone 0.1 % eye drops,suspension tobramycin 0.3 %-dexamethasone 0.1 % eye drops,suspension completed dexamethasone 1 MG/ML / tobramycin 3 MG/ML Ophthalmic Suspension SKINNY ([facility]) Hydroxyzine Hydrochloride 25 MG Oral Tab let Atarax 25 mg tablet Take 1 tablet as needed by oral route. Atarax 25 mg tablet Take 1 tablet as nee ded by oral route. 1 completed hydroxyzine hyd rochloride 25 MG Oral Tablet SKINNY ([facility]) Dexamethasone 1 MG/ML / Tobramycin 3 MG/ ML Ophthalmic Suspension tobramycin 0.3 %-dexamethasone 0.1 % eye drops,suspension tobramycin 0.3 %-dexamethasone 0.1 % eye drops,suspension completed dexamethasone 1 MG/ML / tobramycin 3 MG/ML Ophthalmic Suspension SKINNY ([facility]) buspirone hydrochloride 15 MG Oral Tablet buspirone 15 mg tablet buspirone 15 mg tablet completed buspirone hydr ochloride 15 MG Oral Tablet SKINNY ([facility]) Carboxymethylcellulose Sodium 5 MG/ML Op hthalmic Solution Refresh Plus 0.5 % eye drops in a dropperette Refresh Plus 0.5 % eye drops in a dropperette completed carboxymethylcellulose sodiu m 5 MG/ML Ophthalmic Solution SKINNY ([facility]) Capsaicin 0.25 MG/ML Topical Cream capsaicin 0.025 % t opical cream capsaicin 0.025 % topical cream completed capsaicin 0.25 MG/ML Topical Cream SKINNY ([facility]) Lidocaine 0.05 MG/MG Topical Ointment lidocaine 5 % to pical ointment lidocaine 5 % topical ointment completed lidocaine 0.05 MG/MG Topical Ointment SKINNY ([facility]) valacyclovir 1000 MG Oral Tablet valacyclovir 1 gram t ablet valacyclovir 1 gram tablet completed valacyclovir 10 00 MG Oral Tablet SKINNY ([facility]) Hydroxyzine Hydrochloride 25 MG Oral Tab let Atarax 25 mg tablet Take 1 tablet as needed by oral route. Atarax 25 mg tablet Take 1 tablet as nee ded by oral route. 1 completed hydroxyzine hyd rochloride 25 MG Oral Tablet SKINNY ([facility]) Diclofenac Sodium 0.01 MG/MG Topical Gel [Voltaren] Voltaren 1 % topical gel as needed Voltaren 1 % topical gel as needed co mpleted diclofenac sodium 0.01 MG/MG Topical Gel [Voltaren] SKINNY ([facility]) Diclofenac Sodium 0.01 MG/MG Topical Gel [Voltaren] Voltaren 1 % topical gel as needed Voltaren 1 % topical gel as needed co mpleted diclofenac sodium 0.01 MG/MG Topical Gel [Voltaren] SKINNY ([facility]) Diclofenac Sodium 0.01 MG/MG Topical Gel [Voltaren] Voltaren 1 % topical gel as needed Voltaren 1 % topical gel as needed co mpleted diclofenac sodium 0.01 MG/MG Topical Gel [Voltaren] [place] ([facility]) valacyclovir 1000 MG Oral Tablet valacyclovir 1 gram t ablet valacyclovir 1 gram tablet completed valacyclovir 10 00 MG Oral Tablet [place] ([facility]) Dexamethasone 1 MG/ML / Tobramycin 3 MG/ ML Ophthalmic Suspension tobramycin 0.3 %-dexamethasone 0.1 % eye drops,suspension tobramycin 0.3 %-dexamethasone 0.1 % eye drops,suspension completed dexamethasone 1 MG/ML / tobramycin 3 MG/ML Ophthalmic Suspension [place] ([facility]) 12 HR Guaifenesin 600 MG / Pseudoephedri ne Hydrochloride 60 MG Extended Release Oral Tablet Mucinex D 60 mg-600 mg tablet,extended release Mucinex D 60 mg-600 mg tablet,extended release completed 12 HR guaifenesin 600 MG / pseudoephedrine hydrochloride 60 MG Extended Release Oral Tablet SKINNY ([facility]) Carboxymethylcellulose Sodium 5 MG/ML Op hthalmic Solution Refresh Plus 0.5 % eye drops in a dropperette Refresh Plus 0.5 % eye drops in a dropperette completed carboxymethylcellulose sodiu m 5 MG/ML Ophthalmic Solution SKINNY ([facility]) Oseltamivir 75 MG Oral Capsule [Tamiflu] Tamiflu 75 mg capsule Tamiflu 75 mg capsule completed oseltamivir 75 MG Oral Capsule [Tamiflu] SKINNY ([facility]) Oseltamivir 75 MG Oral Capsule [Tamiflu] Tamiflu 75 mg capsule Tamiflu 75 mg capsule completed oseltamivir 75 MG Oral Capsule [Tamiflu] SKINNY ([facility]) Diclofenac Sodium 0.01 MG/MG Topical Gel [Voltaren] Voltaren 1 % topical gel as needed Voltaren 1 % topical gel as needed co mpleted diclofenac sodium 0.01 MG/MG Topical Gel [Voltaren] SKINNY ([facility]) 12 HR Guaifenesin 600 MG / Pseudoephedri ne Hydrochloride 60 MG Extended Release Oral Tablet Mucinex D 60 mg-600 mg tablet,extended release Mucinex D 60 mg-600 mg tablet,extended release completed 12 HR guaifenesin 600 MG / pseudoephedrine hydrochloride 60 MG Extended Release Oral Tablet [place]INNY ([facility]) Dexamethasone 1 MG/ML / Tobramycin 3 MG/ ML Ophthalmic Suspension tobramycin 0.3 %-dexamethasone 0.1 % eye drops,suspension tobramycin 0.3 %-dexamethasone 0.1 % eye drops,suspension completed dexamethasone 1 MG/ML / tobramycin 3 MG/ML Ophthalmic Suspension SKINNY ([facility]) Lidocaine 0.05 MG/MG Topical Ointment lidocaine 5 % to pical ointment lidocaine 5 % topical ointment completed lidocaine 0.05 MG/MG Topical Ointment SKINNY ([facility]) Capsaicin 0.25 MG/ML Topical Cream capsaicin 0.025 % t opical cream capsaicin 0.025 % topical cream completed capsaicin 0.25 MG/ML Topical Cream SKINNY ([facility]) valacyclovir 1000 MG Oral Tablet valacyclovir 1 gram t ablet valacyclovir 1 gram tablet completed valacyclovir 10 00 MG Oral Tablet SKINNY ([facility]) valacyclovir 1000 MG Oral Tablet valacyclovir 1 gram t ablet valacyclovir 1 gram tablet completed valacyclovir 10 00 MG Oral Tablet SKINNY ([facility]) Lidocaine 0.05 MG/MG Topical Ointment lidocaine 5 % to pical ointment lidocaine 5 % topical ointment completed lidocaine 0.05 MG/MG Topical Ointment SKINNY ([facility]) Capsaicin 0.25 MG/ML Topical Cream capsaicin 0.025 % t opical cream capsaicin 0.025 % topical cream completed capsaicin 0.25 MG/ML Topical Cream SKINNY ([facility]) Dexamethasone 1 MG/ML / Tobramycin 3 MG/ ML Ophthalmic Suspension tobramycin 0.3 %-dexamethasone 0.1 % eye drops,suspension tobramycin 0.3 %-dexamethasone 0.1 % eye drops,suspension completed dexamethasone 1 MG/ML / tobramycin 3 MG/ML Ophthalmic Suspension SKINNY ([facility]) Carboxymethylcellulose Sodium 5 MG/ML Op hthalmic Solution Refresh Plus 0.5 % eye drops in a dropperette Refresh Plus 0.5 % eye drops in a dropperette completed carboxymethylcellulose sodiu m 5 MG/ML Ophthalmic Solution SKINNY ([facility]) Lidocaine 0.05 MG/MG Topical Ointment lidocaine 5 % to pical ointment lidocaine 5 % topical ointment completed lidocaine 0.05 MG/MG Topical Ointment SKINNY ([facility]) Diclofenac Sodium 0.01 MG/MG Topical Gel [Voltaren] Voltaren 1 % topical gel as needed Voltaren 1 % topical gel as needed co mpleted diclofenac sodium 0.01 MG/MG Topical Gel [Voltaren] [place]INNY ([facility]) Capsaicin 0.25 MG/ML Topical Cream capsaicin 0.025 % t opical cream capsaicin 0.025 % topical cream completed capsaicin 0.25 MG/ML Topical Cream SKINNY ([facility]) 12 HR Guaifenesin 600 MG / Pseudoephedri ne Hydrochloride 60 MG Extended Release Oral Tablet Mucinex D 60 mg-600 mg tablet,extended release Mucinex D 60 mg-600 mg tablet,extended release completed 12 HR guaifenesin 600 MG / pseudoephedrine hydrochloride 60 MG Extended Release Oral Tablet SKINNY ([facility]) Capsaicin 0.25 MG/ML Topical Cream capsaicin 0.025 % t opical cream capsaicin 0.025 % topical cream completed capsaicin 0.25 MG/ML Topical Cream SKINNY ([facility]) Lidocaine 0.05 MG/MG Topical Ointment lidocaine 5 % to pical ointment lidocaine 5 % topical ointment completed lidocaine 0.05 MG/MG Topical Ointment SKINNY ([facility]) 12 HR Guaifenesin 600 MG / Pseudoephedri ne Hydrochloride 60 MG Extended Release Oral Tablet Mucinex D 60 mg-600 mg tablet,extended release Mucinex D 60 mg-600 mg tablet,extended release completed 12 HR guaifenesin 600 MG / pseudoephedrine hydrochloride 60 MG Extended Release Oral Tablet SKINNY ([facility]) Oseltamivir 75 MG Oral Capsule [Tamiflu] Tamiflu 75 mg capsule Tamiflu 75 mg capsule completed oseltamivir 75 MG Oral Capsule [Tamiflu] SKINNY ([facility]) Oseltamivir 75 MG Oral Capsule [Tamiflu] Tamiflu 75 mg capsule Tamiflu 75 mg capsule completed oseltamivir 75 MG Oral Capsule [Tamiflu] SKINNY ([facility]) Diclofenac Sodium 0.01 MG/MG Topical Gel [Voltaren] Voltaren 1 % topical gel as needed Voltaren 1 % topical gel as needed co mpleted diclofenac sodium 0.01 MG/MG Topical Gel [Voltaren] SKINNY ([facility]) Carboxymethylcellulose Sodium 5 MG/ML Op hthalmic Solution Refresh Plus 0.5 % eye drops in a dropperette Refresh Plus 0.5 % eye drops in a dropperette completed carboxymethylcellulose sodiu m 5 MG/ML Ophthalmic Solution SKINNY ([facility]) valacyclovir 1000 MG Oral Tablet valacyclovir 1 gram t ablet valacyclovir 1 gram tablet completed valacyclovir 10 00 MG Oral Tablet SKINNY ([facility]) Carboxymethylcellulose Sodium 5 MG/ML Op hthalmic Solution Refresh Plus 0.5 % eye drops in a dropperette Refresh Plus 0.5 % eye drops in a dropperette completed carboxymethylcellulose sodiu m 5 MG/ML Ophthalmic Solution SKINNY ([facility]) Insurance Providers Payer name Policy type / Coverage type Policy ID Covered alliance party ID Covered alliance party's relationship to junior Policy Junior Plan Information [facility] ACTIVE DUTY [id number] SP [id number] [facility] HUMANA - O/P [id number] Problems, Conditions, and Diagnoses Code Display Name Description Problem Type Effective Dates Data Source(s) 5863645 Lumbosacral radiculopathy Lumbosacral radiculopathy Pr oblem 06/30/2020 12:00:00 AM EDT CHINO ([facility], ) [id number] Cervical radiculopathy Cervical radiculopathy Problem 06/30/2020 12:00:00 AM EDT MEDLOC ([facility], ) [id number] Chronic neck pain Chronic neck pain Problem 06/03 12:00:00 AM EDT MEDENT ([facility], ) [id number] Chronic low back pain Chronic low back pain Problem 06/30/2020 12:00:00 AM EDT MEDENT ([facility], ) Surgeries/Procedures Procedure Description Date Indications Data Source(s) Needle electromyography, each extremity, with related paraspinal areas, when performed, done with nerve conduction, amplitude and latency/velocity study; complete, five or more muscles studied, innervated by three or more nerves or four or more spinal levels (list separately in addition to the code for primary procedure). 07/02/2020 12:00:00 AM EDT MEDEN T ([facility], ) Needle electromyography, each extremity, with related paraspinal areas, when performed, done with nerve conduction, amplitude and latency/velocity study; complete, five or more muscles studied, innervated by three or more nerves or four or more spinal levels (list separately in addition to the code for primary procedure). 07/02/2020 12:00:00 AM EDT MEDEN T ([facility], ) 54061 Nerve conduction studies 13 or more studies NEW 201207/02/2020 12:00:00 AM EDT MEDENT ([facility], ) Needle electromyography, each extremity, with related paraspinal areas, when performed, done with nerve conduction, amplitude and latency/velocity study; complete, five or more muscles studied, innervated by three or more nerves or four or more spinal levels (list separately in addition to the code for primary procedure). 07/01/2020 12:00:00 AM EDT MEDEN T ([facility], ) Needle electromyography, each extremity, with related paraspinal areas, when performed, done with nerve conduction, amplitude and latency/velocity study; complete, five or more muscles studied, innervated by three or more nerves or four or more spinal levels (list separately in addition to the code for primary procedure). 07/01/2020 12:00:00 AM EDT MEDEN T ([facility], ) Needle Electromyography Non Extremity Done With Nerve Conduc tion 07/01/2020 12:00:00 AM EDT MEDENT ([facility], ) 23881 Nerve conduction studies 13 or more studies NEW 201207/01/2020 12:00:00 AM EDT MEDENT ([facility]) Needle Electromyography Non Extremity Done With Nerve Conduc tion 07/01/2020 12:00:00 AM EDT MEDENT ([facility]) Results ID Date Data Source [id number] 08/19/2020 08:53:00 AM EST [facility] Name Value Range Interpretation Code Description Data Paula rce(s) Supporting Document(s) SARS coronavirus 2 RNA [facility] This lab was ordered by [facility] and reported by [facility]. ID Date Data Source [id number] 08/06/2020 08:40:00 AM EST [facility] Name Value Range Interpretation Code Description Data Paula rce(s) Supporting Document(s) SARS coronavirus 2 RNA [facility] This lab was ordered by [facility] and reported by [facility]. Procedure Social History No Information Vital Signs ID Date Data Source UNK Name Value Range Interpretation Code Description Data Source(s) Diastolic blood pressure 68 mm[Hg] 68 mm[Hg] SKINNY ([facility]) Body height 69 [in_i] 69 [in_i] SKINNY ([facility]) Systolic blood pressure 122 mm[Hg] 122 mm[Hg] A THENA ([facility]) Diastolic blood pressure 68 mm[Hg] 68 mm[Hg] SKINNY ([facility]) Body height 69 [in_i] 69 [in_i] SKINNY ([facility]) Systolic blood pressure 122 mm[Hg] 122 mm[Hg] A THENA ([facility]) Diastolic blood pressure 77 mm[Hg] 77 mm[Hg] SKINNY ([facility]) Body height 69 [in_i] 69 [in_i] SKINNY ([facility]) Systolic blood pressure 142 mm[Hg] 142 mm[Hg] A THENA ([facility]) Diastolic blood pressure 77 mm[Hg] 77 mm[Hg] SKINNY ([facility]) Body height 69 [in_i] 69 [in_i] SKINNY ([facility]) Systolic blood pressure 142 mm[Hg] 142 mm[Hg] A THENA ([facility]) Diastolic blood pressure 77 mm[Hg] 77 mm[Hg] SKINNY ([facility]) Body height 69 [in_i] 69 [in_i] SKINNY ([facility]) Systolic blood pressure 142 mm[Hg] 142 mm[Hg] A THENA ([facility]) Diastolic blood pressure 70 mm[Hg] 70 mm[Hg] SKINNY ([facility]) Body height 69 [in_i] 69 [in_i] SKINNY ([facility]) Body mass index (BMI) [Ratio] 28.1 kg/m2 28.1 k g/m2 SKINNY ([facility]) Systolic blood pressure 120 mm[Hg] 120 mm[Hg] A THENA ([facility]) Body weight 190 [lb_av] 190 [lb_av] [facility] ([facility]) Diastolic blood pressure 70 mm[Hg] 70 mm[Hg] SKINNY ([facility]) Body height 69 [in_i] 69 [in_i] SKINNY ([facility]) Body mass index (BMI) [Ratio] 28.1 kg/m2 28.1 k g/m2 SKINNY ([facility]) Systolic blood pressure 120 mm[Hg] 120 mm[Hg] A THENA ([facility]) Body weight 190 [lb_av] 190 [lb_av] [facility] ([facility]) Diastolic blood pressure 70 mm[Hg] 70 mm[Hg] SKINNY ([facility]) Body height 69 [in_i] 69 [in_i] SKINNY ([facility]) Body mass index (BMI) [Ratio] 28.1 kg/m2 28.1 k g/m2 SKINNY ([facility]) Systolic blood pressure 120 mm[Hg] 120 mm[Hg] A THENA ([facility]) Body weight 190 [lb_av] 190 [lb_av] SKINNY ([facility]) Diastolic blood pressure 70 mm[Hg] 70 mm[Hg] SKINNY ([facility]) Body height 69 [in_i] 69 [in_i] SKINNY ([facility]) Body mass index (BMI) [Ratio] 28.1 kg/m2 28.1 k g/m2 SKINNY ([facility]) Systolic blood pressure 120 mm[Hg] 120 mm[Hg] A THENA ([facility]) Body weight 190 [lb_av] 190 [lb_av] SKINNY ([facility]) Diastolic blood pressure 70 mm[Hg] 70 mm[Hg] SKINNY ([facility]) Body height 69 [in_i] 69 [in_i] SKINNY ([facility]) Body mass index (BMI) [Ratio] 28.1 kg/m2 28.1 k g/m2 SKINNY ([facility]) Systolic blood pressure 120 mm[Hg] 120 mm[Hg] A THENA ([facility]) Body weight 190 [lb_av] 190 [lb_av] SKINNY ([facility]) Diastolic blood pressure 70 mm[Hg] 70 mm[Hg] SKINNY ([facility]) Body height 69 [in_i] 69 [in_i] SKINNY ([facility]) Body mass index (BMI) [Ratio] 28.1 kg/m2 28.1 k g/m2 SKINNY ([facility]) Systolic blood pressure 120 mm[Hg] 120 mm[Hg] A THENA ([facility]) Body weight 190 [lb_av] 190 [lb_av] SKINNY ([facility]) Diastolic blood pressure 70 mm[Hg] 70 mm[Hg] SKINNY ([facility]) Body height 69 [in_i] 69 [in_i] SKINNY ([facility]) Body mass index (BMI) [Ratio] 28.1 kg/m2 28.1 k g/m2 SKINNY ([facility]) Systolic blood pressure 120 mm[Hg] 120 mm[Hg] A THENA ([facility]) Body weight 190 [lb_av] 190 [lb_av] SKINNY ([facility]) [place] body weight 160 [lb_av] 160 [lb_av] MEDEN T ([facility], ) Body height 69 [in_i] 69 [in_i] MEDENT ([facility], ) 5'9" Body weight 185.00 [lb_av] 185.00 [lb_av] MEDEN T ([facility], ) Diastolic blood pressure 80 mm[Hg] 80 mm[Hg] [facility] Heart rate 72 /min 72 /min [facility], ) Body mass index (BMI) [Ratio] 27.3 kg/m2 27.3 k g/m2 [facility], ) Systolic blood pressure 120 mm[Hg] 120 mm[Hg] M EDENT ([facility], ) Patient Treatment Plan of Care Planned Activity Planned Date Details Description Data Source (s) Diclofenac Sodium 0.01 MG/MG Topical Gel [Voltaren] SKINNY ([facility]) valacyclovir 1000 MG Oral Tablet SKINNY ([facility]) Dexamethasone 1 MG/ML / Tobramycin 3 MG/ML Ophthalmic Suspension SKINNY ([facility]) Oseltamivir 75 MG Oral Capsule [Tamiflu] SKINNY ([facility]) Carboxymethylcellulose Sodium 5 MG/ML Ophthalmic Solution SKINNY ([facility]) 12 HR Guaifenesin 600 MG / Pseudoephedri ne Hydrochloride 60 MG Extended Release [facility] Lidocaine 0.05 MG/MG Topical Ointment SKINNY ([facility]) Capsaicin 0.25 MG/ML Topical Cream SKINNY ([facility]) Hydroxyzine Hydrochloride 25 MG Oral Tablet SKINNY ([facility]) Diclofenac Sodium 0.01 MG/MG Topical Gel [Voltaren] SKINNY ([facility]) valacyclovir 1000 MG Oral Tablet SKINNY ([facility]) Dexamethasone 1 MG/ML / Tobramycin 3 MG/ML Ophthalmic Suspension SKINNY ([facility]) Oseltamivir 75 MG Oral Capsule [Tamiflu] SKINNY ([facility]) Carboxymethylcellulose Sodium 5 MG/ML Ophthalmic Solution SKINNY ([facility]) 12 HR Guaifenesin 600 MG / Pseudoephedri ne Hydrochloride 60 MG Extended Release Oral Tablet [facility] Lidocaine 0.05 MG/MG Topical Ointment SKINNY ([facility]) Capsaicin 0.25 MG/ML Topical Cream SKINNY ([facility]) Hydroxyzine Hydrochloride 25 MG Oral Tablet SKINNY ([facility]) Diclofenac Sodium 0.01 MG/MG Topical Gel [Voltaren] SKINNY ([facility]) valacyclovir 1000 MG Oral Tablet SKINNY ([facility]) Dexamethasone 1 MG/ML / Tobramycin 3 MG/ML Ophthalmic Suspension SKINNY ([facility]) Oseltamivir 75 MG Oral Capsule [Tamiflu] SKINNY ([facility]) Carboxymethylcellulose Sodium 5 MG/ML Ophthalmic Solution SKINNY ([facility]) 12 HR Guaifenesin 600 MG / Pseudoephedri ne Hydrochloride 60 MG Extended Release Oral Tablet [facility]NY ([facility]) Lidocaine 0.05 MG/MG Topical Ointment SKINNY ([facility]) Capsaicin 0.25 MG/ML Topical Cream SKINNY ([facility]) buspirone hydrochloride 15 MG Oral Tablet SKINNY ([facility]) Hydroxyzine Hydrochloride 25 MG Oral Tablet SKINNY ([facility]) Diclofenac Sodium 0.01 MG/MG Topical Gel [Voltaren] SKINNY ([facility]) valacyclovir 1000 MG Oral Tablet SKINNY ([facility]) Dexamethasone 1 MG/ML / Tobramycin 3 MG/ML Ophthalmic Suspension SKINNY ([facility]) Oseltamivir 75 MG Oral Capsule [Tamiflu] SKINNY ([facility]) Carboxymethylcellulose Sodium 5 MG/ML Ophthalmic Solution SKINNY ([facility]) 12 HR Guaifenesin 600 MG / Pseudoephedri ne Hydrochloride 60 MG Extended Release Oral Tablet [facility] Lidocaine 0.05 MG/MG Topical Ointment SKINNY ([facility]) Capsaicin 0.25 MG/ML Topical Cream SKINNY ([facility]) Diclofenac Sodium 0.01 MG/MG Topical Gel [Voltaren] SKINNY ([facility]) valacyclovir 1000 MG Oral Tablet SKINNY ([facility]) Dexamethasone 1 MG/ML / Tobramycin 3 MG/ML Ophthalmic Suspension SKINNY ([facility]) Oseltamivir 75 MG Oral Capsule [Tamiflu] SKINNY ([facility]) Carboxymethylcellulose Sodium 5 MG/ML Ophthalmic Solution SKINNY ([facility]) 12 HR Guaifenesin 600 MG / Pseudoephedri ne Hydrochloride 60 MG Extended Release Oral Tablet SK[facility]NY ([facility]) Lidocaine 0.05 MG/MG Topical Ointment SKINNY ([facility]) Capsaicin 0.25 MG/ML Topical Cream SKINNY ([facility]) Diclofenac Sodium 0.01 MG/MG Topical Gel [Voltaren] SKINNY ([facility]) valacyclovir 1000 MG Oral Tablet SKINNY ([facility]) Dexamethasone 1 MG/ML / Tobramycin 3 MG/ML Ophthalmic Suspension SKINNY ([facility]) Oseltamivir 75 MG Oral Capsule [Tamiflu] SKINNY ([facility]) Carboxymethylcellulose Sodium 5 MG/ML Ophthalmic Solution SKINNY ([facility]) 12 HR Guaifenesin 600 MG / Pseudoephedri ne Hydrochloride 60 MG Extended Release Oral Tablet [facility] Lidocaine 0.05 MG/MG Topical Ointment SKINNY ([facility]) Capsaicin 0.25 MG/ML Topical Cream SKINNY ([facility]) Diclofenac Sodium 0.01 MG/MG Topical Gel [Voltaren] SKINNY ([facility]) valacyclovir 1000 MG Oral Tablet SKINNY ([facility]) Dexamethasone 1 MG/ML / Tobramycin 3 MG/ML Ophthalmic Suspension SKINNY ([facility]) Oseltamivir 75 MG Oral Capsule [Tamiflu] SKINNY ([facility]) Carboxymethylcellulose Sodium 5 MG/ML Ophthalmic Solution SKINNY ([facility]) 12 HR Guaifenesin 600 MG / Pseudoephedri ne Hydrochloride 60 MG Extended Release Oral Tablet [facility] Lidocaine 0.05 MG/MG Topical Ointment SKINNY ([facility]) Capsaicin 0.25 MG/ML Topical Cream SKINNY ([facility])
[2021-07-17] MEDS ORDERED: PERCOCET 5MG/325MG TAB PO ONE (12:10)
--- NOTE | 2021-07-17 12:36 | REP ---
INDICATION: trauma COMPARISON: None. TECHNIQUE: AP and lateral views right tibia/fibula FINDINGS: Medial and lateral malleolar fractures at the ankle are noted with overlying soft tissue swelling. No other fracture or dislocation. No subcutaneous emphysema or foreign body. IMPRESSION: Medial and lateral ankle fractures. <Electronically signed by Donn Goodson > 07/17/21 [id number]
--- NOTE | 2021-07-17 12:37 | REP ---
INDICATION: trauma COMPARISON: None. TECHNIQUE: AP, lateral, right foot oblique views . FINDINGS: The osseous structures and joint spaces of the foot are intact and normal. There is no evidence for acute fracture or dislocation. Surrounding soft tissues are unremarkable. No subcutaneous emphysema or radiodense foreign body. Known ankle fractures. IMPRESSION: Known ankle fractures. No evidence for trauma to the foot. <Electronically signed by Donn Goodson > 07/17/21 [id number]
[2021-07-17] MEDS ORDERED: PERC5TAB12 PO (13:26)
[2021-07-17 13:36] VITALS: BP 126/59
== END 2021-07-17 14:06 | disposition home or self-care (01) ==
LOC: M ED 11:26
DX: S82.54XA Nondisplaced fracture of medial malleolus of right tibia, initial encounter for closed fracture (principal); S82.831A Other fracture of upper and lower end of right fibula, initial encounter for closed fracture; X58.XXXA Exposure to other specified factors, initial encounter; Y92.9 Unspecified place or not applicable; Y93.9 Activity, unspecified; Y99.9 Unspecified external cause status; Z88.1 Allergy status to other antibiotic agents

== ENCOUNTER → 2022-03-15 | Outpatient (CLI) | payer OTHER ==
[~2022-03-15] MED LIST changes: +PERC5TAB12 PO; +VALA500T5 PO
== END ==
LOC: M RAD 15:29
PROVIDERS: ATTEND Otolaryngology
DX: J32.0 Chronic maxillary sinusitis (principal)

== ENCOUNTER 2022-04-26 06:12 | Emergency (ER) | payer OTHER ==
[~2022-04-26] VITALS: Ht 175.3 cm; Wt 86.4 kg
[2022-04-26] MEDS ORDERED: KETOROLAC 30 MG/ML 1ML VIAL IM ONE (07:30)
[2022-04-26] MEDS ORDERED: methocarbamoL 500 MG TAB PO ONE (07:30)
[2022-04-26] MEDS ORDERED: LIDOCAINE 5% (LIDODERM) PATCH TOP ONE (07:30)
[2022-04-26] MEDS ORDERED: PERCOCET 5MG/325MG TAB PO ONE (09:10)
[2022-04-26] MEDS ORDERED: METH-1164 PO (10:00)
[2022-04-26] MEDS ORDERED: predniSONE 20 MG TAB PO ONE (10:00)
[2022-04-26] MEDS ORDERED: MEDR4PAK PO (10:01)
[2022-04-26] MEDS ORDERED: PERC5TAB12 PO (10:02)
[2022-04-26] MEDS ORDERED: LIDO5DIS41 TOP (10:06)
[2022-04-26 10:07] VITALS: BP 147/81
[2022-04-26] MEDS ORDERED: **NOTE PATIENT COMMENT** MISC XX SCH (21:00)
== END 2022-04-26 10:16 | disposition home or self-care (01) ==
LOC: M ED 06:12
DX: M51.26 Other intervertebral disc displacement, lumbar region (principal); K21.9 Gastro-esophageal reflux disease without esophagitis; Z79.899 Other long term (current) drug therapy
CPT/HCPCS: 72131; 96372; 99282; J1885; J7512

== ENCOUNTER 2022-06-02 07:16 | Day surgery (SDC) | payer OTHER ==
[~2022-06-02] VITALS: Ht 175.3 cm; Wt 88.5 kg
[~2022-06-02 07:16] MED LIST changes: +LIDO5DIS41 TOP; +MEDR4PAK PO; +METH-1164 PO; +dexameTHASONE 4 MG/ML 1ML VIAL (J1100 PER 1MG) IV ONE
[2022-06-02] MEDS ORDERED: LR 1,000 ML IV SCH ×3 (07:30→12:40)
[2022-06-02] MEDS ORDERED: METHYLENE BLUE 0.5% (5MG/ML) 10 ML AMP (PROVAYBLUE) As Ordered ONE (09:38)
[2022-06-02] MEDS ORDERED: LIDOCAINE W/EPINEPHRINE 1% 20ML VIAL As Ordered ONE (09:38)
[2022-06-02] MEDS ORDERED: EPINEPHrine 1MG/ML INJ 30ML MD-VIAL As Ordered ONE (09:39)
[2022-06-02] MEDS ORDERED: SODIUM CHLORIDE 0.9% NASAL GEL 15GM (AYR) As Ordered ONE (09:39)
[2022-06-02] MEDS ORDERED: SUGAMMADEX SODIUM 500 MG/5 ML VIAL (BRIDION) As Ordered ONE (10:23)
[2022-06-02] MEDS ORDERED: fentaNYL 250 MCG/5 ML INJECTION As Ordered ONE (10:23)
[2022-06-02] MEDS ORDERED: dexameTHASONE 4 MG/ML 1ML VIAL (J1100 PER 1MG) As Ordered ONE (10:23)
[2022-06-02] MEDS ORDERED: LIDOCAINE 2% 100MG/5ML SDV (FOR ANES.) As Ordered ONE (10:23)
[2022-06-02] MEDS ORDERED: MIDAZOLAM INJ 2MG/2ML VIAL (J2250 PER 1MG) As Ordered ONE (10:23)
[2022-06-02] MEDS ORDERED: propofoL 200 MG/20 ML VIAL As Ordered ONE (10:23)
[2022-06-02] MEDS ORDERED: ONDANSETRON 4MG 2ML VIAL As Ordered ONE (10:23)
[2022-06-02] MEDS ORDERED: ROCURONIUM BROMIDE 50 MG/5 ML VIAL As Ordered ONE (10:23)
[2022-06-02] MEDS ORDERED: ACETAMINOPHEN 1000MG 100ML IV BTL (OFIRMEV) (J0131 PER 10MG) As Ordered ONE (10:44)
[2022-06-02] MEDS ORDERED: MEPERIDINE INJ 25 MG/ML VIAL (J2175) IV PRN (11:20)
[2022-06-02] MEDS ORDERED: PERCOCET 5MG/325MG TAB PO PRN (11:20)
[2022-06-02] MEDS ORDERED: METOCLOPRAMIDE INJ 10MG/2ML VIAL (J2765 PER 1) IV PRN (11:20)
[2022-06-02] MEDS ORDERED: fentaNYL 100 MCG/2 ML INJECTION IV PRN (11:20)
[2022-06-02] MEDS ORDERED: ONDANSETRON 4MG 2ML VIAL IV PRN (11:20)
[2022-06-02] MEDS: HYDROMORPHONE HCL 0.5 MG/ 0.5 ML SYRINGE (J1170 PER 1) IV PRN ×2 (11:38→11:46)
[2022-06-02 12:10] VITALS: BP 125/77
== END 2022-06-02 12:42 | disposition home or self-care (01) ==
LOC: M SDC 07:16
PROVIDERS: ATTEND Otolaryngology
DX: J34.2 Deviated nasal septum (principal); J34.3 Hypertrophy of nasal turbinates; Z88.1 Allergy status to other antibiotic agents
CPT/HCPCS: 30520; 30801; 88300; J0131; J0171; J1100; J1170; J2250; J2405; J3010; Q9968